=== PATIENT | female | born 1945 | race Two or more races ===

== ENCOUNTER 2024-10-12 23:01 | Inpatient (IN) | payer MEDICAID, SELFPAY ==
--- NOTE | 2024-10-12 23:16 | EKG_ITS ---
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
--- NOTE | 2024-10-12 23:16 | EDNOTE_ITS ---
ED Fall Injury RME/HPI General Chief Complaint: Fall Stated Complaint: FALL Time Seen by Provider: 10/12/24 23:10 Arrival date/time: 10/12/24 23:01 RME / HPI RME / HPI Narrative: Dr. Barton?s Main ED Evaluation: 79yo female with a history of HTN BIBA from home presents to the ED for a chief complaint of a fall. Patient states she was getting out of bed to use the restroom when she slipped and fell, landing on her left hip. Endorses having left hip pain. She denies any head strikes or loss of consciousness. Patient denies any headache, dizziness, neck pain, chest pain, abdominal pain, shortness of breath or any other associated symptoms. No known allergies. Related Data Home Medications ?Medication ?Instructions ?Recorded ?Confirmed atorvastatin 20 mg tablet 20 mg PO HS 12/22/21 2 Previous Rx's ?Medication ?Instructions ?Recorded hydrochlorothiazide 12.5 mg tablet 12.5 mg PO DAILY 30 days #30 tabs 06/02/20 lisinopril 40 mg tablet 40 mg PO QDAY 30 days #30 ta bs 06/02/20 ondansetron 4 mg disintegrating 4 mg PO Q4H PRN nausea and 12/22/21 tablet vomiting #10 tabs meclizine 25 mg tablet 25 mg PO BID PRN dizziness # 14 tabs 04/12/22 Allergies Allergy/AdvReac Type Severity Reaction Status Date / Time No Known Allergies Allergy Verified 04/12/22 13:32 Review of Systems Review of Systems Systems Reviewed: All systems reviewed, normal except as documented Narrative Review of Systems: Gen: No fever, no chills, no weight loss EYES: No discharge, no visual changes, no pain HEENT: No ear pain, no congestion, no sore throat PULM: No shortness of breath, no cough, no congestion CV: No chest pain, no dyspnea on exertion, no palpitations GI: No nausea, no vomiting, no diarrhea, no pain, no constipation : No frequency, no urgency, no dysuria Musc/skel: + LLE pain, no back pain Skin: No rash. Warm and dry. Psyc: No hallucinations, no depression Heme/Lymph: No easy bleeding or bruising tendencies Neuro: No weakness, no headache Past Medical History Past Medical History NEUROLOGIC: Negative Neurological Disorders or Seizures CARDIAC: Positive Hypertension and Varicose Veins; Negative Cardiac Disorders, Congestive Heart Failure, Edema or Cellulitis RESPIRATORY: Negative Chronic Obstructive Pulmonary Disease (COPD), Asthma, Tuberculosis, Pulmonary Embolism or Sleep Apnea GASTROINTESTINAL: Positive Gastrointestinal Disorders, Gall Bladder Disease and Hemorrhoids; Negative Hepatitis GENITOURINARY: Negative Genitourinary Disorders or Renal Disease REPRODUCTIVE: Positive Previous Pregnancies MUSCULOSKELETAL: Negative Musculoskeletal Disorders, Gout, Scoliosis, Fibromyalgia or Fractures ENDOCRINE: Negative Endocrine Disorders, Diabetes Mellitus Type 1 or Diabetes Mellitus Type 2 HEMATOLOGIC: Negative Blood Disorders or Sickle Cell Disease OTHER HISTORY: Negative Hospitalization, Autoimmune Disease, Shingles, Falls, Blood Transfusions, Anesthesia Reactions, Chemotherapy, Radiation Therapy, MRSA, Chicken Pox, Measles, Mumps or Cancer Family History FAMILY HISTORY: Negative Family Psychiatric Problems, Family Respiratory Disorders, Family Cardiac Disorders, Family Gastrointestinal Problems, Family Cancer, Family Surgery or Family Anesthesia Reaction Surgical History SURGICAL: Positive Hysterectomy; Negative Pacemaker Social History SMOKING STATUS: Never smoker SUBSTANCE USE: does not use ED Exam Narrative Physical exam: GENERAL APPEARANCE: alert and oriented x 4, well-developed, well-nourished, no acute distress VITALS: All vitals were reviewed and the pulse ox is % on room air, which is normal according to my interpretation. HEENT: Normocephalic, atraumatic; pupils equal, round, reactive to light; EOMI; mucous membranes pink, moist; oropharynx clear NECK: Supple LUNGS: CTABL; no wheezes, no rales, no rhonchi HEART: Regular rate, regular rhythm; normal S1, S2; no murmurs ABDOMEN: non distended; normal BS; soft, no tenderness, no guarding, no rebound; no masses, no organomegaly, no hernia BACK: no CVA tenderness EXTREMITIES: LLE is shortened, externally rotated, and tender on palpation; no edema NEUROLOGIC: awake; alert and oriented x4; cranial nerves II-XII grossly intact; no focal sensory or motor deficits PSYCHIATRIC: appropriate mood and affect SKIN: warm, dry, normal color; no rashes Course Course Course Narrative: CXR is ordered to r/o pneumothorax. Quality Measures none Orders Category Date Time Status Admit to Inpatient Status Routine Admission 10/13/24 01:05 Active Patient Condition Routine Admission 10/13/24 01:04 Ordered COVID-19 Screening Questionnaire NOW Care 10/13/24 00:31 Active Preliminary School Psychologist NOW Care 10/12/24 23:17 Active Continuous Pulse Oximetry NOW Care 10/12/24 23:16 Completed EKG (ED ONLY) *Do not use* NOW Care 10/12/24 23:17 Completed Notify provider NEEDED Care 10/13/24 01:04 Active Seizure precautions NEEDED Care 10/13/24 01:05 Active Consult to Cardiology Stat Cons 10/13/24 00:55 Ordered Diet Cardiac Diet 10/13/24 Breakfast Active CA echo doppler complete Stat Exams 10/13/24 00:55 Ordered EKG (ED Only) Stat Exams 10/12/24 23:16 Draft XR chest 1V Stat Exams 10/12/24 23:16 Completed XR hip LT w pelvis 2-3V Stat Exams 10/12/24 23:16 Completed Alcohol, Blood Medical Stat Lab 10/12/24 23:32 Completed CBC AM DRAW Lab 10/13/24 05:00 Ordered CBC AM DRAW Lab 10/14/24 05:00 Ordered CBC AM DRAW Lab 10/15/24 05:00 Ordered CBC Stat Lab 10/12/24 23:32 Completed Comprehensive Metabolic Panel AM DRAW Lab 10/13/24 05:00 Ordered Comprehensive Metabolic Panel AM DRAW Lab 10/14/24 05:00 Ordered Comprehensive Metabolic Panel AM DRAW Lab 10/15/24 05:00 Ordered Comprehensive Metabolic Panel Stat Lab 10/12/24 23:32 Completed Drug Screen,Urine Stat Lab 10/12/24 23:17 Ordered Lipase Stat Lab 10/12/24 23:32 Completed Lipid Panel AM DRAW Lab 10/13/24 05:00 Ordered Magnesium AM DRAW Lab 10/13/24 05:00 Ordered Magnesium AM DRAW Lab 10/14/24 05:00 Ordered Magnesium AM DRAW Lab 10/15/24 05:00 Ordered Magnesium Stat Lab 10/12/24 23:32 Completed Partial Thromboplastin Time Stat Lab 10/12/24 23:32 Completed Phosphorous AM DRAW Lab 10/14/24 05:00 Ordered Phosphorous AM DRAW Lab 10/15/24 05:00 Ordered Phosphorous AM DRAW Lab 10/16/24 05:00 Ordered Prothrombin Time with INR Stat Lab 10/12/24 23:32 Completed Thyroid Stimulating Hormone AM DRAW Lab 10/13/24 05:00 Ordered Troponin I Stat Lab 10/12/24 23:32 Completed Urinalysis Stat Lab 10/12/24 23:17 Ordered Acetaminophen Tab [Tylenol Tab] Med 10/13/24 01:04 Active 650 mg PO Q6H PRN Albuterol/Ipratr Rt Sima [Duoneb Rt Sima] Med 10/13/24 01:04 Active 3 ml INH Q4HR PRN HYDROmorphone INJ [Dilaudid Inj] Med 10/13/24 01:04 Active 1 mg IVP Q4HR PRN Ketorolac Inj [Toradol Inj] Med 10/13/24 00:37 Discontinued 15 mg IVP X1 ONE Lactulose Syrup [Enulose Syrup] Med 10/13/24 09:00 Active 10 gm PO QDAY Lidocaine 5% Patch Med 10/13/24 00:37 Discontinued 1 patch TOP X1 ONE Morphine Inj Med 10/13/24 01:04 Active 4 mg IVP Q4HR PRN Ondansetron Inj [Zofran Inj] Med 10/13/24 01:04 Active 4 mg IV Q6H PRN Pantoprazole Inj [Protonix Inj] Med 10/13/24 09:00 Active 40 mg IVP QDAY Senna [Senokot] Med 10/13/24 09:00 Active 1 tab PO QDAY fentaNYL INJ [Sublimaze Inj] Med 10/12/24 23:16 Discontinued 50 mcg IVP X1 ONE Code Status Routine Oth 10/13/24 01:04 Ordered Late Tray Request Routine Oth 10/13/24 00:55 Active Oxygen Delivery PRN RT 10/13/24 01:04 Active Vital Signs Vital signs: Vital Signs Pulse Rate 68 10/12/24 23:17 Fall [facility] Narrative [facility] Narrative:: Scribe Attestation: 10/12/24 Paige Paz am scribing for and in the presence of Dr. Barton. Patient data External records reviewed:: [facility] previous records (Per chart review, patient has no relevant previous ED visits.) Clinical information provided by:: patient Social determinants that could affect healthcare access:: none Patient has the following chronic illnesses:: HTN How is presenting disease/condition affected by chronic disease/condition?: uneffected by Evaluation data The following diagnostics were reviewed and interpreted by me:: lab results, radiology exam(s) and EKG tracing(s) Lab and/or radiology exams considered but not ordered:: none Interpretation Summary: WBC count is elevated at 12.3, PTT is normal, PT and INR are normal, troponin is normal, CMP is normal, Blood Alcohol is negative, according to my interpretation. EKG done at 2335, NSR, rate of 61, normal axis, no ectopy, no acute ischemia, according to my interpretation. ----- [facility] Report Signed Patient: LANNY MOORE. Record#: [id number] Birthdate: 1945 Age/Sex: 79 / F Location: [facility] Attending Dr: Ordering Physician: Marcos Barton MD Date of Service: 10/12/24 Procedure(s): XR hip LT w pelvis 2-3V Accession Number(s): [id number] cc: Des Vee MD; Marcos Barton MD~ Examination:Left hip AP, lateral, AP pelvis 3 views Technique: Hip AP lateral, AP pelvis, 3 views Exam date and time:October 12, 2024 11:21 PM INDICATIONS: Patient fell today with injury of the acromion hip pain. FINDINGS: Acute intertrochanteric fracture left hip, up to 13 mm separation of the main fracture fragments No dislocation Right hip bones of the pelvis is intact IMPRESSION: Acute intertrochanteric fracture left hip. Dictated By: Des Vee MD Signed By: <Electronically signed by Des Vee MD in OV> 10/12/24 2355 [facility] Report Signed Patient: LANNY MOORE. Record#: [id number] Birthdate: 1945 Age/Sex: 79 / F Location: [facility] Attending Dr: Ordering Physician: Marcos Barton MD Date of Service: 10/12/24 Procedure(s): XR chest 1V Accession Number(s): [id number] cc: Des Vee MD; Marcos Barton MD~ Examination: AP chest single view TECHNIQUE: AP portable supine chest single view Exam date and time: October 12, 2019 5:30 PM INDICATIONS: Patient fell today with injury to the hip, hip pain, hip fracture today pre-op chest x-ray FINDINGS: Normal heart size No pneumonia or pulmonary edema Prominent osteopenia IMPRESSION: No active disease Dictated By: Des Vee MD Signed By: <Electronically signed by Des Vee MD in OV> 10/12/24 1683 Medications / Prescriptions Medications or Prescriptions considered but not ordered:: none Medication administrations:: Medication Administration History Acetaminophen (Acetaminophen 325 Mg Tablet) 650 mg PO Q6H PRN PRN Reason: Fever >100.3 or pain Stop: 11/12/24 01:03 Albuterol/Ipratropium (Albuterol/Ipratropium (Duoneb) Rt Sima 3 Ml Nebu) 3 ml INH Q4HR PRN PRN Reason: SHORTNESS OF BREATH OR WHEEZE Stop: 11/12/24 01:03 Hydralazine HCl (Hydralazine Inj 20 Mg/Ml Vial) 5 mg IV Q6HR PRN PRN Reason: SBP > 180 Stop: 11/12/24 01:10 Hydromorphone HCl (Hydromorphone Inj 2 Mg/Ml Vial) 1 mg IVP Q4HR PRN PRN Reason: BREAKTHROUGH PAIN Stop: 10/18/24 01:03 Lactulose (Lactulose Syrup 20 Gm/30 Ml Udc) 10 gm PO QDAY [facility]; Protocol Stop: 11/12/24 08:59 Morphine Sulfate (Morphine Sulf Inj 10 Mg/Ml Vial) 4 mg IVP Q4HR PRN PRN Reason: PAIN SCALE 4-10(Mod-Sev Stop: 10/18/24 01:03 Ondansetron HCl (Ondansetron Inj 2 Mg/Ml Inj 2 Ml) 4 mg IV Q6H PRN; Protocol PRN Reason: NAUSEA OR VOMITING Stop: 11/12/24 01:03 Pantoprazole Sodium (Pantoprazole Inj 40 Mg Vial) 40 mg IVP QDAY RAMA Stop: 11/12/24 08:59 Sennosides (Senna Tablet) 1 tab PO QDAY [facility]; Protocol Stop: 11/12/24 08:59 Discontinued Medications Fentanyl Citrate (Fentanyl Cit Inj 50 Mcg/Ml Amp 2ml) 50 mcg IVP X1 ONE Stop: 10/12/24 23:17 Last Admin: 10/12/24 23:38 Dose: 50 mcg Documented By: SALUD Ketorolac Tromethamine (Ketorolac Inj 30 Mg/Ml Vial) 15 mg IVP X1 ONE Stop: 10/13/24 00:38 Last Admin: 10/13/24 01:01 Dose: 15 mg Documented By: SALUD Lidocaine (Lidocaine 5% 1 Patch) 1 patch TOP X1 ONE Stop: 10/13/24 00:38 Last Admin: 10/13/24 01:01 Dose: 1 patch Documented By: SALUD see above Consultations Consultation(s) initiated? (list below): Yes Consultation #1 (Physician, Specialty, Details): Discussed case with [Dr. Sharp] from [orthopedic surgery] regarding [consultation]. Discussed patients ED course, exam findings, labs, and radiology results. Agrees to consult. Time: 00:19 Consultation #2 (Physician, Specialty, Details): Discussed case with [the resident physician, attending Dr. Prescott] from Hospitalist service regarding admission. Discussed patients ED course, exam f indings, labs, and radiology results. The Hospitalist [agrees] to accept the patient for admission. Time: 00:21 Diagnosis Fall Differential Diagnosis: other (fracture, dislocation, contusion) Most likely diagnosis given after review of the tests above:: see below Admission Indicated Admission indicated?: indicated Admission Request Was there a request for admission?: Yes Admission Attestation Admission request attestation: Discussed case with [] from Hospitalist service regarding admission. Discussed patients ED course, exam findings, labs, and radiology results. The Hospitalist [agrees,declines] to accept the patient for admission. Disposition Plan Disposition Plan: Admit Discharge Plan Problem List Clinical Impression: Closed hip fracture
[2024-10-12 23:17] VITALS: PULSE 68
[2024-10-12 23:28] VITALS: BP 179/77; PULSE 67; RESP 18; TEMP 36.6; O2SAT 99
[2024-10-12] MEDS: fentaNYL CIT INJ 50 mCg/ML AMP 2ML IVP (23:38)
[2024-10-12 23:58] LABS: Basophils % (Auto) 0 % (0-2.5); Eosinophils # (Auto) 0.1 Thou/mm3 (0.0-0.5); Eosinophils % (Auto) 0 % (0-10); Hematocrit 34.5 % (36.0-46.0); Immature Granulocytes % (Auto) 0 % (0-0); Immature Granulocytes Auto 0.04 Thou/mm3 (0.00-0.00); Lymphocytes # (Auto) 1.2 Thou/mm3 (1.0-4.8); Lymphocytes % (Auto) 10 % (10-50); Mean Corpuscular HGB Conc 34.8 g/dl (31.0-37.0); Mean Corpuscular Hemoglobin 28.8 pg (25.0-35.0); Mean Corpuscular Volume 83 fL (80-100); Monocytes # (Auto) 0.8 Thou/mm3 (0.0-0.8); Monocytes % (Auto) 7 % (0-12); Neutrophils # (Auto) 10.1 Thou/mm3 (1.8-7.7); Neutrophils % (Auto) 83 % (37-80); Nucleated Red Blood Cell % 0 /100 WBC (0); Partial Thromboplastin Time 25.6 Seconds (22.0-36.0); Platelet Count 227 Thou/mm3 (140-440); RDW Standard Deviation 41.2 fL (36.4-46.3); Red Blood Count 4.17 Miln/mm3 (4.00-5.20); White Blood Count 12.3 Thou/mm3 (3.6-11.0)
[2024-10-13] VITALS (13 sets, daily range): BP systolic 110–153; BP diastolic 48–96; PULSE 60–81; RESP 14–98; TEMP 36.7–37.7; O2SAT 94–98; BMI 25.4
[2024-10-13 00:02] LABS: Troponin I < 0.020 ng/mL (0.0-0.045)
[2024-10-13 00:11] LABS: Albumin, Serum 4.2 gm/dL (3.4-4.8); Albumin/Globulin Ratio 1.7 (1.2-2.2); Alcohol, Blood Medical < 3.0 mg/dL (0-10.0); Alkaline Phosphatase 70 U/L (46-116); Anion Gap 9 (7-16); Aspartate Amino Transferase 19 U/L (0-34); BUN/Creatinine Ratio 21 Ratio (12-20); Bilirubin,Total 0.5 mg/dL (0.3-1.2); Blood Urea Nitrogen 17 mg/dL (9-23); Calcium 9.5 mg/dL (8.3-10.6); Calcium (Corrected) 9.5 mg/dL (8.5-10.1); Carbon Dioxide 26.5 mMol/L (20.0-31.0); Chloride 103 mMol/L (98-107); Creatinine (Component) 0.8 mg/dL (0.6-1.3); Globulin 2.5 gm/dL (2.3-3.5); Glucose 153 mg/dL (74-106); Lipase 33 U/L (12-53); Magnesium 1.7 mg/dL (1.6-2.6); Osmolality,Calculated 280 (275-295); Potassium 3.5 mMol/L (3.4-5.1); Sodium 138 mMol/L (136-145); Total Protein 6.7 gm/dL (5.7-8.2); eGFR > 60 See Note
[2024-10-13 00:14] LABS: Alanine Aminotransferase 12 U/L (10-49)
--- NOTE | 2024-10-13 00:55 | ECHO_ITS ---
Transthoracic Echo Report Ht (in): 60 Wt (lb): 130 Exam Location: Echo Lab Status: Emergency Hvac/R Service Technician: Ladi Marquez Indications: Procedure Performed: BP: 179 / 77 HR: 68 Technical Quality: Technically difficult study MEASUREMENTS (Male / Female) Normal Values 2D ECHO LA Volume Index 25.4 cm?/m? 16 - 28 cm?/m? DOPPLER AV Peak Velocity 148.0 cm/s AV Peak Gradient 8.8 mmHg AV Mean Gradient 5.0 mmHg AV Velocity Time Integral 29.5 cm AI Peak Velocity 240.0 cm/s AI Peak Gradient 23.0 mmHg AI Pressure Half Time 686.0 ms LVOT Peak Velocity 134.0 cm/s LVOT Peak Gradient 7.2 mmHg LVOT Velocity Time Integral 28.1 cm MV Area PHT 4.2 cm? MR Peak Velocity 314.0 cm/s MR Peak Gradient 39.4 mmHg Mitral E Point Velocity 40.3 cm/s Mitral A Point Velocity 62.1 cm/s Mitral E to A Ratio 0.6 LV E' Lateral Velocity 9.1 cm/s Mitral E to LV E' Lateral Ratio 4.4 LV E' Septal Velocity 5.0 cm/s Mitral E to LV E' Septal Ratio 8.1 TR Peak Velocity 217.0 cm/s TR Peak Gradient 18.8 mmHg PV Peak Velocity 107.0 cm/s PV Peak Gradient 4.6 mmHg FINDINGS Left Ventricle Normal left ventricular size, wall thickness, systolic function with no obvious regional wall motion abnormalities. Normal left ventricular diastolic filling pattern for age. The ejection fraction is visually estimated at 65 %. Right Ventricle The right ventricle is normal in size and systolic function. Left Atrium The left atrium is normal by two-dimensional, color flow and Doppler imaging with no structural abnormalities, no thrombus formation present. Right Atrium The right atrium is normal by two-dimensional imaging, color flow and Doppler imaging with no structural abnormalities, no thrombus formation present. Atrial Septum The interatrial septum appears normal with no evidence of a shunt. Aorta The aorta is normal by two-dimensional, color flow and Doppler interrogation. Mitral Valve The mitral valve is normal by two-dimensional, color flow and Doppler interrogation. There is mild mitral valve regurgitation, stenosis or prolapse. Aortic Valve The aortic valve is trileaflet and normal by two-dimensional, color flow and Doppler interrogation. There is mild aortic valve regurgitation. Tricuspid Valve The tricuspid valve is normal by two-dimensional, color flow and Doppler interrogation. There is mild tricuspid valve regurgitation. Pulmonic Valve The pulmonic valve is not well visualized. There is no significant pulmonic valve regurgitation. Vessels Inferior vena cava not well visualized. Pericardium The pericardium is normal by two-dimensional imaging. There is no significant pericardial effusion. CONCLUSIONS Indication: Pre-op Normal LV size, wall thickness. Estimated EF 65 %. RV is normal in size and systolic function. Mild MR, TR and AI. Mere Cheung (Electronically Signed) Final Date: 15 October 2024 00:21
[2024-10-13] MEDS: LIDOCAINE 5% 1 PATCH TOP (01:01)
[2024-10-13] MEDS: KETOROLAC INJ 30 MG/ML VIAL 15 MG IVP (01:01)
--- NOTE | 2024-10-13 01:13 | ESHP_ITS ---
<Statement entered by Obey Prescott MD - 10/13/24 13:31> I have discussed and was present for the essential components of the history, physical examination, diagnosis, and treatment plan with the resident. I agree with the patient's care as documented by the resident and amended herein by me. Obey Prescott MD FACP. Documentation for date of: 10/13/24 HPI History of Present Illness Chief complaint: Ground Level fall History of present illness: HPI: Patient is [place]-speaking and interview conducted with a registered healthcare camouflage specialist. Patient was seen with daughter at bedside. Patient is a 79-year-old past medical history significant for essential hypertension, hyperlipidemia and osteoporosis presented today with a chief complaint of a ground-level fall. Patient was lying in bed last night and attempted to reach for the remote on bedside table. Subsequently patient rolled off of the bed and fell on the floor. Denied any dizziness, headache, presyncope/syncope, chest pain, shortness of breath, PND/orthopnea, vomiting, diarrhea, fever, sick contacts and recent travel. Subsequently patient experienced 10/10 pain in her left hip, constant, no radiation and aggravated by movement. Her daughter called the ambulance and she was brought into the ED. ED course: BP 179/77, pulse 67, RR 18, temp 98F, SpO2 99% on room air. Lab significant for Hb 12, HCT 34.5, NA 138, K3.5, BUN 17, CR 0.8. EKG significant for sinus rhythm, rate 61, QTc 428. No acute ST changes. Chest x-ray negative for any consolidation, pulmonary edema and pleural effusion. Hip/pelvis x-ray significant for acute intertrochanteric fracture left hip with 13 mm separation of the main fracture fragments. In the ED patient received fentanyl 50 mcg IV x 1. Patient will be admitted for treatment and management of left hip fracture. Orthopedics, Dr Sharp consulted and closely following the case. Appreciate recommendations. Cardiology, Dr. Velásquez consulted for cardiac clearance. Appreciate recommendations. Review of Systems Review of Systems Narrative Review of Systems: GENERAL: Denies fever/chills or diaphoresis. HEENT: Denies headaches or visual changes. Denies discharge. Neuro: Denies unusual weakness or difficulty speaking. CARDIO: Denies chest pain or palpitations. PULM: Denies SOB, coughing or wheezing. GI: Denies abdominal pain, N/V/C/D. Reports having BMs. URO: Denies burning/itching/pain/urinary changes. MSK/EXT/SKIN: As above PSYCH: Cooperative, pleasant mood & affect. The rest of the review of systems is otherwise negative. Past Medical History Past Medical History Comments PMH COMMENT: Past medical history: ? Essential hypertension ? Hyperlipidemia ? Osteoporosis Medication list: ?Awaiting reconciliation Past surgical history: ? Cholecystectomy ? Vaginal hysterectomy with rectocele repair [2020] Allergies: NIL Social history: Occupational History: Retired. Previously field engineer Education Level: Never attended school Marital Status: with 13 kids Tobacco use: Denies ETHO use: Denies Illicit drug use: Denies Social History Note: lives with daughters. At baseline ambulates without any aides. Family History: Denies Exam Vital Signs Temp Pulse Resp BP Pulse Ox O2 Del Method 98 F 67 18 179/77 H 99 Room Air 10/12/24 23:28 10/12/24 23:28 10/12/24 23:28 10/12/24 23:28 10/12/24 23:28 10/12/24 23:28 Narrative Exam Constitutional Alert, oriented x 3 and mild distress. Elderly female HEENT Vision grossly intact. Patent nares. Trachea midline Respiratory Chest normal on inspection and clear auscultation bilaterally Cardiovascular S1 and S2 audible, RRR. No murmurs carotid bruit. JVD not assessed Abdominal Soft and non tender to palpation in all quadrants. BS + Genitourinary No bladder tenderness, no flank pain. Normal to palpation Musculoskeletal Extremities tone within normal limits. No LE edema. Left leg shortened and externally rotated Neurological CN II - XII grossly intact. Extremity motor and sensation grossly intact. Skin Warm, dry and intact. Varicose veins on bilateral lower extremities up to knees Psychiatric Patient has good affect, is cooperative Results: Labs 10/12/24 23:32 10/12/24 23:32 Labs: Short CBC 10/12/24 Range/Units 23:32 WBC 12.3 H (3.6-11.0) Thou/mm3 Hgb 12.0 (12.0-16.0) g/dL Hct 34.5 L (36.0-46.0) % Plt Count 227 (140-440) Thou/mm3 BMP 10/12/24 23:32 Sodium 138 Potassium 3.5 Chloride 103 Carbon Dioxide 26.5 BUN 17 Creatinine 0.8 Glucose 153 H Calcium 9.5 Cardiac Enzymes 10/12/24 Range/Units 23:32 Troponin I < 0.020 (0.0-0.045) ng/mL Liver Function 10/12/24 Range/Units 23:32 Total Bilirubin 0.5 (0.3-1.2) mg/dL AST 19 (0-34) U/L ALT 12 (10-49) U/L Alkaline Phosphatase 70 (46-116) U/L Albumin 4.2 (3.4-4.8) gm/dL Quality Measures Quality Measures none Advance care planning discussed with:: patient and child Medications Home Medications and Allergies Home Medications ?Medication ?Instructions ?Recorded ?Confirmed ?Type atorvastatin 20 mg tablet 20 mg PO HS 12/22/21 2 History Allergies Allergy/AdvReac Type Severity Reaction Status Date / Time No Known Allergies Allergy Verified 04/12/22 13:32 Visit Medications Acetaminophen (Acetaminophen 325 Mg Tablet) 650 mg PO Q6H PRN PRN Reason: Fever >100.3 or pain Stop: 11/12/24 01:03 Albuterol/Ipratropium (Albuterol/Ipratropium (Duoneb) Rt Sima 3 Ml Nebu) 3 ml INH Q4HR PRN PRN Reason: SHORTNESS OF BREATH OR WHEEZE Stop: 11/12/24 01:03 Hydralazine HCl (Hydralazine Inj 20 Mg/Ml Vial) 5 mg IV Q6HR PRN PRN Reason: SBP > 180 Stop: 11/12/24 01:10 Hydromorphone HCl (Hydromorphone Inj 2 Mg/Ml Vial) 1 mg IVP Q4HR PRN PRN Reason: BREAKTHROUGH PAIN Stop: 10/18/24 01:03 Lactulose (Lactulose Syrup 20 Gm/30 Ml Udc) 10 gm PO QDAY RAMA; Protocol Stop: 11/12/24 08:59 Morphine Sulfate (Morphine Sulf Inj 10 Mg/Ml Vial) 4 mg IVP Q4HR PRN PRN Reason: PAIN SCALE 4-10(Mod-Sev Stop: 10/18/24 01:03 Ondansetron HCl (Ondansetron Inj 2 Mg/Ml Inj 2 Ml) 4 mg IV Q6H PRN; Protocol PRN Reason: NAUSEA OR VOMITING Stop: 11/12/24 01:03 Pantoprazole Sodium (Pantoprazole Inj 40 Mg Vial) 40 mg IVP QDAY RAMA Stop: 11/12/24 08:59 Sennosides (Senna Tablet) 1 tab PO QDAY RAMA; Protocol Stop: 11/12/24 08:59 Discontinued Medications Fentanyl Citrate (Fentanyl Cit Inj 50 Mcg/Ml Amp 2ml) 50 mcg IVP X1 ONE Stop: 10/12/24 23:17 Last Admin: 10/12/24 23:38 Dose: 50 mcg Ketorolac Tromethamine (Ketorolac Inj 30 Mg/Ml Vial) 15 mg IVP X1 ONE Stop: 10/13/24 00:38 Last Admin: 10/13/24 01:01 Dose: 15 mg Lidocaine (Lidocaine 5% 1 Patch) 1 patch TOP X1 ONE Stop: 10/13/24 00:38 Last Admin: 10/13/24 01:01 Dose: 1 patch Assessment & Plan Plan Patient is a 79-year-old past medical history significant for essential hypertension, hyperlipidemia and osteoporosis presented today with a chief complaint of a ground-level fall. Patient will be admitted for treatment and management of left hip fracture. 1. Acute intertrochanteric fracture left hip secondary to ground-level fall 2. Osteoporosis Patient fell out of bed onto the floor after reaching for the remote on bedside table. On exam patient's left leg shortened and externally rotated Hip/pelvis x-ray significant for acute intertrochanteric fracture left hip with 13 mm separation of the main fracture fragments. In the ED patient received fentanyl 50 mcg IV x 1 Plan: ? Cardiac diet ? Transthoracic echocardiogram ordered to assess for wall motion abnormalities, valvular defects and ejection fraction. ? Lidocaine patch x 1 ? Ketorolac 15 Mg IV x 1 ? Morphine 4 Mg IV Q4 hourly as needed for pain 4?10 ? Hydromorphone 1 Mg IV Q4 hourly as needed for breakthrough pain ? Cardiology, Dr. Velásquez consulted for cardiac clearance. Appreciate recommendations ? Orthopedics, Dr Sharp consulted and is closely following the case. 3. Essential hypertension 4. Hyperlipidemia On admission BP 179/77. Hypertension most likely secondary to pain Plan: ? Medication reconciliation ? Lipid panel ordered ? Hydralazine 5 Mg IV every 6 hourly as needed for SBP >180 5. Varicose veins On exam patient has bilateral lower extremity varicose veins up to her knees Plan: ? On discharge will recommend compression stockings Health maintenance: Disposition: Pain control. Pending cardiac clearance and Ortho recommendations Diet: Cardiac Lines: pIVs GI Prophylaxis: Pantoprazole Thrombo Prophylaxis: None Code status: FULL CODE Plan of care discussed with Attending Dr. Kenyon Pitts MD PGY 1
[2024-10-13 05:46] LABS: Basophils % (Auto) 0 % (0-2.5); Eosinophils % (Auto) 0 % (0-10); Hematocrit 35.2 % (36.0-46.0); Immature Granulocytes % (Auto) 0 % (0-0); Immature Granulocytes Auto 0.03 Thou/mm3 (0.00-0.00); Lymphocytes # (Auto) 0.8 Thou/mm3 (1.0-4.8); Lymphocytes % (Auto) 8 % (10-50); Mean Corpuscular HGB Conc 34.1 g/dl (31.0-37.0); Mean Corpuscular Hemoglobin 28.5 pg (25.0-35.0); Mean Corpuscular Volume 84 fL (80-100); Monocytes # (Auto) 0.6 Thou/mm3 (0.0-0.8); Monocytes % (Auto) 6 % (0-12); Neutrophils # (Auto) 8.6 Thou/mm3 (1.8-7.7); Neutrophils % (Auto) 85 % (37-80); Nucleated Red Blood Cell % 0 /100 WBC (0); Platelet Count 231 Thou/mm3 (140-440); RDW Standard Deviation 42.1 fL (36.4-46.3); Red Blood Count 4.21 Miln/mm3 (4.00-5.20); White Blood Count 10.1 Thou/mm3 (3.6-11.0)
[2024-10-13 06:24] LABS: Alanine Aminotransferase 12 U/L (10-49); Albumin, Serum 4.3 gm/dL (3.4-4.8); Albumin/Globulin Ratio 1.7 (1.2-2.2); Alkaline Phosphatase 69 U/L (46-116); Anion Gap 11 (7-16); Aspartate Amino Transferase 19 U/L (0-34); BUN/Creatinine Ratio 23 Ratio (12-20); Bilirubin,Total 0.6 mg/dL (0.3-1.2); Blood Urea Nitrogen 18 mg/dL (9-23); Calcium 9.6 mg/dL (8.3-10.6); Calcium (Corrected) 9.6 mg/dL (8.5-10.1); Cardiac Risk Estimate 3.8 RATIO (3.7-5.6); Chloride 102 mMol/L (98-107); Cholesterol 181 mg/dL (132-200); Creatinine (Component) 0.8 mg/dL (0.6-1.3); Globulin 2.5 gm/dL (2.3-3.5); Glucose 147 mg/dL (74-106); HDL Cholesterol 48 mg/dL (40-60); LDL Cholesterol,Calculated 117 mg/dL (0-130); Magnesium 1.7 mg/dL (1.6-2.6); Osmolality,Calculated 280 (275-295); Potassium 4.2 mMol/L (3.4-5.1); Sodium 138 mMol/L (136-145); Thyroid Stimulating Hormone 0.32 uIU/mL (0.55-4.78); Total Protein 6.8 gm/dL (5.7-8.2); Triglycerides 82 mg/dL (30-150); eGFR > 60 See Note
--- NOTE | 2024-10-13 07:16 | PC.NURSE ---
Pt. here from home to room 6, pt.'s daughter at bedside, pt. states she fell and has pain to left hip. Warm blankets given and coffee given to daughter.
--- NOTE | 2024-10-13 08:20 | PD.IMCONS ---
HPI Data of Consult Requesting Physician: Obey Prescott MD Primary Care Provider: Tanvir Donnelly PA-C Consult Narrative History of present illness: This is [id number] past medical history significant for essential hypertension, hyperlipidemia and osteoporosis Patient was seen in the emergency room following a fall from the bed Patient was evaluated emergency room and found to have a hip fracture Cardiology consultation requested for cardiac clearance Patient appears to have a right hip fracture No chest pain neck pain left arm pain shortness of breath noted EKG does not show any acute ST-T wave changes Troponins are essentially negative cc:: cc: Obey Prescott MD Meds Home Medications and Allergies Home Medications ?Medication ?Instructions ?Recorded ?Confirmed ?Type atorvastatin 20 mg tablet 20 mg PO HS 12/22/21 12/22/21 History Allergies Allergy/AdvReac Type Severity Reaction Status Date / Time No Known Allergies Allergy Verified 04/12/22 13:32 Exam Vital Signs Temp Pulse Resp BP Pulse Ox O2 Del Method 98.4 F 68 21 H 110/48 L 97 Room Air 10/13/24 05:48 10/13/24 05:48 10/13/24 05:48 10/13/24 05:48 10/13/24 05:48 10/13/24 05:48 Routine HEENT Exam Head: Present normocephalic and atraumatic Eye: Present EOMI and PERRL ENT: Present mucous membranes moist Routine Neck Exam Neck: Present supple and trachea midline Routine Respiratory Exam Respiratory: Present chest non-tender, lungs clear, normal breath sounds and no resp distress Routine Cardiovascular Exam Cardiovascular: Present RRR Routine Abdominal Exam Abdominal: Present soft and normoactive bowel sounds Routine Extremities Exam Extremities: Present full ROM Routine Skin Exam Skin: Present intact, dry and warm Routine Neurological Exam Neurological: Present alert, oriented X3 and CN II-XII intact Routine Psychiatric Exam Psychiatric: Present normal affect and normal thought process Results Labs 10/13/24 05:05 10/13/24 05:05 Labs: Short CBC 10/12/24 10/13/24 Range/Units 23:32 05:05 WBC 12.3 H 10.1 (3.6-11.0) Thou/mm3 Hgb 12.0 12.0 (12.0-16.0) g/dL Hct 34.5 L 35.2 L (36.0-46.0) % Plt Count 227 231 (140-440) Thou/mm3 BMP 10/12/24 10/13/24 23:32 05:05 Sodium 138 138 Potassium 3.5 4.2 D Chloride 103 102 Carbon Dioxide 26.5 25.0 BUN 17 18 Creatinine 0.8 0.8 Glucose 153 H 147 H Calcium 9.5 9.6 Cardiac Enzymes 10/12/24 Range/Units 23:32 Troponin I < 0.020 (0.0-0.045) ng/mL Liver Function 10/12/24 10/13/24 Range/Units 23:32 05:05 Total Bilirubin 0.5 0.6 (0.3-1.2) mg/dL AST 19 19 (0-34) U/L ALT 12 12 (10-49) U/L Alkaline Phosphatase 70 69 (46-116) U/L Albumin 4.2 4.3 (3.4-4.8) gm/dL Assessment and Plan Assessment and plan (1) Closed hip fracture: Status: Acute (2) Hypertension: Status: Acute (3) Hyperlipidemia: Status: Acute (4) Preop cardiovascular exam: Status: Acute Additional Assessment & Plan Additional Plan: Patient appears to have fracture of hip Currently denies any cardiac symptoms EKG: Probable Troponins are negative Echocardiographic examination was pending Patient is considered to be in optimal cardiac condition for the planned surgical procedure
[2024-10-13] MEDS: MORPHINE SULF INJ 10 MG/ML VIAL 4 MG IVP ×2 (10:18→19:08)
[2024-10-13] MEDS: PANTOPRAZOLE INJ 40 MG VIAL IVP (10:22)
[2024-10-13] MEDS: LACTULOSE SYRUP 20 GM/30 ML UDC 10 GM PO (10:23)
[2024-10-13] MEDS: SENNA TABLET 1 TAB PO (10:23)
--- NOTE | 2024-10-13 10:30 | PC.NURSE ---
Warm blankets given and pt. has 2 daughters bedside. Pt. states she's comfortable.
--- NOTE | 2024-10-13 18:52 | PD.RESPRO ---
Documentation for date of: 10/13/24 Senior resident attestation: The patient is a 79-year-old female medical history pertinent for hypertension, hyperlipidemia and osteoporosis admitted with left hip fracture following ground-level mechanical fall. Orthopedic surgeon Dr. Sharp was consulted, patient will require cardiac clearance prior to procedure, echocardiogram ordered and cardiology was consulted. Patient evaluated and examined at the bedside, plan of care discussed with rest of the team including my attending physician, except as noted. Frieda PGY2 Subjective Subjective Interval history: 10/13: Patient is an overnight admit. Patient seen this morning patient's daughter is at bedside who stated patient fell off her bed and broke her left hip. Patient underwent cardiac clearance this morning and patient is scheduled for left hip surgery tomorrow. Patient denies any chest pain, abdominal pain or dysuria. Patient states she has mild pain in the hip. Exam Vital Signs Temp Pulse Resp BP Pulse Ox O2 Del Method 98.1 F 79 18 144/96 H 96 Room Air 10/13/24 16:00 10/13/24 16:00 10/13/24 16:00 10/13/24 16:00 10/13/24 16:00 10/13/24 16:00 Narrative Exam GENERAL: A&Ox3 . Awake, Not in acute distress NEURO: no focal neurological deficits HEENT: Atraumatic, Normocephalic. mucous membranes moist. Eyes open, symmetrical, & clear HEART: Normal Heart Sounds LUNGS: Clear to auscultation with no wheezing or crackles. ABDOMEN: soft, non-distended, non-tender, bowel sounds heard, no guarding or rebound tenderness SKIN: No Rash or ecchymoses EXTREMITIES: No edema, tenderness, able to move all 4 extremities, pedal pulses palpated, Varicose veins on bilateral lower extremities up to knees Objective Labs 10/14/24 04:38 10/14/24 04:38 Labs: Laboratory Results - last 24 hr 10/12/24 10/13/24 10/13/24 23:32 05:05 12:05 WBC 12.3 H 10.1 RBC 4.17 4.21 Hgb 12.0 12.0 Hct 34.5 L 35.2 L MCV 83 84 MCH 28.8 28.5 MCHC 34.8 34.1 RDW Std Deviation 41.2 42.1 Plt Count 227 231 Neut % (Auto) 83 H 85 H Lymph % (Auto) 10 8 L [place] % (Auto) 7 6 Eos % (Auto) 0 0 Baso % (Auto) 0 0 Neut # (Auto) 10.1 H 8.6 H Lymph # (Auto) 1.2 0.8 L [place] # (Auto) 0.8 0.6 Eos # (Auto) 0.1 0.0 Baso # (Auto) 0.0 0.0 Immature Gran # (Auto) 0.04 H 0.03 H Absolute Nucleated RBC 0.00 0.00 Immature Gran % 0 0 Nucleated RBC % 0 0 PT 11.0 INR 1.0 APTT 25.6 Sodium 138 138 Potassium 3.5 4.2 D Chloride 103 102 Carbon Dioxide 26.5 25.0 Anion Gap 9 11 BUN 17 18 Creatinine 0.8 0.8 Estim Creat Clear Calc Not Performed. Not Performed. eGFR > 60 > 60 BUN/Creatinine Ratio 21 H 23 H Glucose 153 H 147 H Calculated Osmolality 280 280 Calcium 9.5 9.6 Corrected Calcium 9.5 9.6 Magnesium 1.7 1.7 Total Bilirubin 0.5 0.6 AST 19 19 ALT 12 12 Alkaline Phosphatase 70 69 Troponin I < 0.020 Total Protein 6.7 6.8 Albumin 4.2 4.3 Globulin 2.5 2.5 Albumin/Globulin Ratio 1.7 1.7 Triglycerides 82 Cholesterol 181 LDL Cholesterol, Calc 117 HDL Cholesterol 48 Cholesterol/HDL Ratio 3.8 Lipase 33 TSH 0.32 L Ethyl Alcohol < 3.0 Blood Type A Positive Antibody Screen NEGATIVE Crossmatch See Detail Blood Bank Wristband ID Yes Quality Measures Quality Measures none Advance care planning discussed with:: patient Assessment & Plan Assessment Current Active Medications: Generic Name Dose Route Start Last Admin Trade Name Freq PRN Reason Stop Dose Admin Acetaminophen 650 mg 10/13/24 01:04 Acetaminophen 325 Mg Tablet PO 11/12/24 01:03 Q6H PRN Fever >100.3 or pain Protocol Albuterol/Ipratropium 3 ml 10/13/24 01:04 Albuterol/Ipratropium (Duoneb) Rt Sima 3 Ml Nebu INH 11/12/24 01:03 Q4HR PRN SHORTNESS OF BREATH OR WHEEZE Hydralazine HCl 5 mg 10/13/24 01:11 Hydralazine Inj 20 Mg/Ml Vial IV 11/12/24 01:10 Q6HR PRN SBP > 180 Hydromorphone HCl 1 mg 10/13/24 01:04 Hydromorphone Inj 2 Mg/Ml Vial IVP 10/18/24 01:03 Q4HR PRN BREAKTHROUGH PAIN Lactulose 10 gm 10/13/24 09:00 10/13/24 10:23 Lactulose Syrup 20 Gm/30 Ml Udc PO 11/12/24 08:59 10 gm QDAY RAMA Administration Protocol Morphine Sulfate 4 mg 10/13/24 01:04 10/13/24 10:18 Morphine Sulf Inj 10 Mg/Ml Vial IVP 10/18/24 01:03 4 mg Q4HR PRN Administration PAIN SCALE 4-10(Mod-Sev Ondansetron HCl 4 mg 10/13/24 01:04 Ondansetron Inj 2 Mg/Ml Inj 2 Ml IV 11/12/24 01:03 Q6H PRN NAUSEA OR VOMITING Protocol Pantoprazole Sodium 40 mg 10/13/24 09:00 10/13/24 10:22 Pantoprazole Inj 40 Mg Vial IVP 11/12/24 08:59 40 mg QDAY RAMA Administration Sennosides 1 tab 10/13/24 09:00 10/13/24 10:23 Senna Tablet PO 11/12/24 08:59 1 tab QDAY RAMA Administration Protocol Plan Patient is a 79-year-old past medical history significant for essential hypertension, hyperlipidemia and osteoporosis presented today with a chief complaint of a ground-level fall. Patient will be admitted for treatment and management of left hip fracture. #Acute intertrochanteric fracture left hip secondary to ground-level fall #Osteoporosis Patient fell out of bed onto the floor after reaching for the remote on bedside table. On exam patient's left leg shortened and externally rotated Hip/pelvis x-ray significant for acute intertrochanteric fracture left hip with 13 mm separation of the main fracture fragments. In the ED patient received fentanyl 50 mcg IV x 1 Plan: ? Cardiac diet ? Transthoracic echocardiogram ordered to assess for wall motion abnormalities, valvular defects and ejection fraction. ? Lidocaine patch x 1 ? Ketorolac 15 Mg IV x 1 ? Morphine 4 Mg IV Q4 hourly as needed for pain 4?10 ? Hydromorphone 1 Mg IV Q4 hourly as needed for breakthrough pain ? Cardiology, Dr. Velásquez consulted for cardiac clearance. Patient is clear from cardiology ? Orthopedics, Dr Sharp consulted-patient is scheduled for surgery on 10/14 #Essential hypertension #Hyperlipidemia On admission BP 179/77. Hypertension most likely secondary to pain Plan: ? Medication reconciliation ? Hydralazine 5 Mg IV every 6 hourly as needed for SBP >180 #Varicose veins On exam patient has bilateral lower extremity varicose veins up to her knees Plan: ? On discharge will recommend compression stockings Health maintenance: Disposition: Pain control. Pending cardiac clearance and Ortho recommendations Diet: Cardiac Lines: pIVs GI Prophylaxis: Pantoprazole Thrombo Prophylaxis: None Code status: FULL CODE Assessment and plan discussed with my senior resident Dr. Malave & attending physician Dr. Jose Lozada (PGY-1)- Internal medicine resident Attending Provider Attestation/Addendum I, Yola Garcia, , attest that I was physically present for the briceño portions of the service and evaluated the patient with the resident and I reviewed and discussed the case with the resident and agree with the resident's findings and plans of care as documented above Patient seen and evaluated this AM. Daughters at bedside. She states that her pain is well controlled. No acute events overnight. Patient cleared by cardio for surgery. Npo after midnight as patient is scheduled for repair of left hip fracture tomorrow. Continue with current management. Patient denies any loss of consciousness after falling out of bed.
[2024-10-13] MEDS: ONDANSETRON INJ 2 MG/ML INJ 2 ML 4 MG IV (20:19)
[2024-10-13] MEDS: Lisinopril 20 MG TABLET 40 MG PO (21:07)
[2024-10-14] VITALS (17 sets, daily range): BP systolic 100–144; BP diastolic 50–69; PULSE 52–89; RESP 8–98; TEMP 36.1–37.3; O2SAT 92–100
[2024-10-14] MEDS: MORPHINE SULF INJ 10 MG/ML VIAL 4 MG IVP (04:13)
[2024-10-14 05:19] LABS: Basophils % (Auto) 0 % (0-2.5); Eosinophils # (Auto) 0.1 Thou/mm3 (0.0-0.5); Eosinophils % (Auto) 1 % (0-10); Hematocrit 33.5 % (36.0-46.0); Hemoglobin 11.6 g/dL (12.0-16.0); Immature Granulocytes % (Auto) 0 % (0-0); Immature Granulocytes Auto 0.03 Thou/mm3 (0.00-0.00); Lymphocytes # (Auto) 1.7 Thou/mm3 (1.0-4.8); Lymphocytes % (Auto) 26 % (10-50); Mean Corpuscular HGB Conc 34.6 g/dl (31.0-37.0); Mean Corpuscular Hemoglobin 28.9 pg (25.0-35.0); Mean Corpuscular Volume 83 fL (80-100); Monocytes # (Auto) 0.8 Thou/mm3 (0.0-0.8); Monocytes % (Auto) 11 % (0-12); Neutrophils # (Auto) 4.1 Thou/mm3 (1.8-7.7); Neutrophils % (Auto) 62 % (37-80); Nucleated Red Blood Cell % 0 /100 WBC (0); Platelet Count 192 Thou/mm3 (140-440); RDW Standard Deviation 41.2 fL (36.4-46.3); Red Blood Count 4.02 Miln/mm3 (4.00-5.20); White Blood Count 6.7 Thou/mm3 (3.6-11.0)
[2024-10-14 06:16] LABS: Alanine Aminotransferase 31 U/L (10-49); Albumin, Serum 4.3 gm/dL (3.4-4.8); Albumin/Globulin Ratio 1.7 (1.2-2.2); Alkaline Phosphatase 72 U/L (46-116); Anion Gap 9 (7-16); Aspartate Amino Transferase 41 U/L (0-34); BUN/Creatinine Ratio 21 Ratio (12-20); Bilirubin,Total 1.5 mg/dL (0.3-1.2); Blood Urea Nitrogen 17 mg/dL (9-23); Calcium 9.4 mg/dL (8.3-10.6); Calcium (Corrected) 9.4 mg/dL (8.5-10.1); Carbon Dioxide 26.2 mMol/L (20.0-31.0); Chloride 101 mMol/L (98-107); Creatinine (Component) 0.8 mg/dL (0.6-1.3); Estimated Creatinine Clearance 45.8 mL/min (>60); Globulin 2.6 gm/dL (2.3-3.5); Glucose 132 mg/dL (74-106); Magnesium 1.7 mg/dL (1.6-2.6); Osmolality,Calculated 275 (275-295); Phosphorous 3.5 mg/dL (2.4-5.1); Potassium 3.7 mMol/L (3.4-5.1); Sodium 136 mMol/L (136-145); Total Protein 6.9 gm/dL (5.7-8.2); eGFR > 60 See Note
[2024-10-14] MEDS: Lisinopril 20 MG TABLET 40 MG PO (09:47)
[2024-10-14] MEDS: hydroCHLOROthiazide 12.5 MG CAPSULE PO (09:48)
[2024-10-14] MEDS: PANTOPRAZOLE INJ 40 MG VIAL IVP (09:50)
[2024-10-14] MEDS: HYDROmorphone INJ 2 MG/ML VIAL 1 MG IVP (10:31)
[2024-10-14] MEDS: ONDANSETRON INJ 2 MG/ML INJ 2 ML 4 MG IV (10:56)
--- NOTE | 2024-10-14 10:56 | PD.RESPRO ---
Documentation for date of: 10/14/24 Subjective Subjective Interval history: 10/14: last night pt. was very nauseas and was vomiting after receiving 4mg of morphine for pain control. Pt is seen and examined at bedside this morning. family is at bedside and pt does not complain of any pain She states she is ready for surgery. She wants to eat immediately after surgery because she is very hungry since she has been NPO for surgery. Pt states she feels relaxed and has no other complaints. Exam Vital Signs Temp Pulse Resp BP Pulse Ox O2 Del Method 97.5 F 63 18 131/61 H 98 Room Air 10/14/24 08:00 10/14/24 09:48 10/14/24 08:34 10/14/24 09:48 10/14/24 08:34 10/14/24 08:00 Narrative Exam GENERAL: A&Ox3 . Awake, Not in acute distress NEURO: no focal neurological deficits HEENT: Atraumatic, Normocephalic. mucous membranes moist. Eyes open, symmetrical, & clear HEART: Normal Heart Sounds LUNGS: Clear to auscultation with no wheezing or crackles. ABDOMEN: soft, non-distended, non-tender, bowel sounds heard, no guarding or rebound tenderness SKIN: No Rash or ecchymoses EXTREMITIES: No edema, tenderness, able to move all 4 extremities, pedal pulses palpated, Varicose veins on bilateral lower extremities up to knees Objective Labs 10/14/24 04:38 10/14/24 04:38 Labs: Laboratory Results - last 24 hr 10/13/24 10/14/24 12:05 04:38 WBC 6.7 RBC 4.02 Hgb 11.6 L Hct 33.5 L MCV 83 MCH 28.9 MCHC 34.6 RDW Std Deviation 41.2 Plt Count 192 D Neut % (Auto) 62 Lymph % (Auto) 26 [place] % (Auto) 11 Eos % (Auto) 1 Baso % (Auto) 0 Neut # (Auto) 4.1 Lymph # (Auto) 1.7 [place] # (Auto) 0.8 Eos # (Auto) 0.1 Baso # (Auto) 0.0 Immature Gran # (Auto) 0.03 H Absolute Nucleated RBC 0.00 Immature Gran % 0 Nucleated RBC % 0 Sodium 136 Potassium 3.7 D Chloride 101 Carbon Dioxide 26.2 Anion Gap 9 BUN 17 Creatinine 0.8 Estim Creat Clear Calc 45.8 L eGFR > 60 BUN/Creatinine Ratio 21 H Glucose 132 H Calculated Osmolality 275 Calcium 9.4 Corrected Calcium 9.4 Phosphorus 3.5 Magnesium 1.7 Total Bilirubin 1.5 H D AST 41 H ALT 31 Alkaline Phosphatase 72 Total Protein 6.9 Albumin 4.3 Globulin 2.6 Albumin/Globulin Ratio 1.7 Blood Type A Positive Antibody Screen NEGATIVE Crossmatch See Detail Blood Bank Wristband ID Yes Quality Measures Quality Measures none Advance care planning discussed with:: patient Assessment & Plan Assessment Current Active Medications: Generic Name Dose Route Start Last Admin Trade Name Freq PRN Reason Stop Dose Admin Acetaminophen 650 mg 10/13/24 01:04 Acetaminophen 325 Mg Tablet PO 11/12/24 01:03 Q6H PRN Fever >100.3 or pain Protocol Albuterol/Ipratropium 3 ml 10/13/24 01:04 Albuterol/Ipratropium (Duoneb) Rt Sima 3 Ml Nebu INH 11/12/24 01:03 Q4HR PRN SHORTNESS OF BREATH OR WHEEZE Hydralazine HCl 5 mg 10/13/24 01:11 Hydralazine Inj 20 Mg/Ml Vial IV 11/12/24 01:10 Q6HR PRN SBP > 180 Hydromorphone HCl 1 mg 10/13/24 01:04 10/14/24 10:31 Hydromorphone Inj 2 Mg/Ml Vial IVP 10/18/24 01:03 1 mg Q4HR PRN Administration BREAKTHROUGH PAIN Lactulose 10 gm 10/13/24 09:00 10/14/24 09:50 Lactulose Syrup 20 Gm/30 Ml Udc PO 11/12/24 08:59 Not Given QDAY RAMA Protocol Lisinopril 40 mg 10/14/24 09:00 10/14/24 09:47 Lisinopril 20 Mg Tablet PO 11/13/24 08:59 40 mg QDAY RAMA Administration Ondansetron HCl 4 mg 10/13/24 01:04 10/13/24 20:19 Ondansetron Inj 2 Mg/Ml Inj 2 Ml IV 11/12/24 01:03 4 mg Q6H PRN Administration NAUSEA OR VOMITING Protocol Pantoprazole Sodium 40 mg 10/13/24 09:00 10/14/24 09:50 Pantoprazole Inj 40 Mg Vial IVP 11/12/24 08:59 40 mg QDAY RAMA Administration Sennosides 1 tab 10/13/24 09:00 10/14/24 09:50 Senna Tablet PO 11/12/24 08:59 Not Given QDAY [facility] Protocol Plan Patient is a 79-year-old past medical history significant for essential hypertension, hyperlipidemia and osteoporosis presented today with a chief complaint of a ground-level fall. Patient will be admitted for treatment and management of left hip fracture. #Acute intertrochanteric fracture left hip secondary to ground-level fall #Osteoporosis Patient fell out of bed onto the floor after reaching for the remote on bedside table. On exam patient's left leg shortened and externally rotated Hip/pelvis x-ray significant for acute intertrochanteric fracture left hip with 13 mm separation of the main fracture fragments. In the ED patient received fentanyl 50 mcg IV x 1 Plan: ? Cardiac diet ? Transthoracic echocardiogram ordered to assess for wall motion abnormalities, valvular defects and ejection fraction. ? Lidocaine patch x 1 ? Ketorolac 15 Mg IV x 1 ? please avoid Morphine for pain control as Pt becomes very nauseas with morphine ? Hydromorphone 1 Mg IV Q4 hourly as needed for breakthrough pain ? Cardiology, Dr. Velásquez consulted for cardiac clearance. Patient is clear from cardiology ? Orthopedics, Dr Sharp consulted-patient is scheduled for surgery on 10/14 #Essential hypertension #Hyperlipidemia On admission BP 179/77. Pts home meds include hydrocholorthiazide, lisinopril Plan: ? hold home hydrochlorothiazide -continue home lisinopril ? Hydralazine 5 Mg IV every 6 hourly as needed for SBP >180 #Varicose veins On exam patient has bilateral lower extremity varicose veins up to her knees Plan: ? On discharge will recommend compression stockings Health maintenance: Disposition: Pain control. Pending cardiac clearance and Ortho recommendations Diet: Cardiac Lines: pIVs GI Prophylaxis: Pantoprazole Thrombo Prophylaxis: None Code status: FULL CODE Assessment and plan discussed with my senior resident Dr. Malave & attending physician Dr. Jose Lozada (PGY-1)- Internal medicine resident Attending Provider Attestation/Addendum Yola Chávez, DO, attest that I was physically present for the briceño portions of the service and evaluated the patient with the resident and I reviewed and discussed the case with the resident and agree with the resident's findings and plans of care as documented above Patient seen and evaluated this AM. Daughter at bedside and states that the patient has been nauseous throughout night 2/2 morphine. Switched morphine to dilaudid with which patient tolerated better. She is scheduled for repair of left hip fracture later this morning. No acute events overnight otherwise.
--- NOTE | 2024-10-14 12:16 | PC.SS ---
Follow up note: Surgery with Dr. Montero today.
--- NOTE | 2024-10-14 12:30 | XR_ITS ---
Examination: Left femur AP lateral 6 views Fluoroscopy Exam date and time: October 14, 2024 1403 hours INDICATIONS: Acute intertrochanteric fracture left hip October 12, 2024, operative reduction internal fixation hip fracture today TECHNIQUE AND FINDINGS: 6 spot fluoroscopic AP lateral femur films Fluoroscopy 30 seconds Operative reduction internal fixation left hip fracture with anatomic alignment Orthopedic hardware including intramedullary sagar satisfactory position IMPRESSION: Operative reduction internal fixation left hip fracture with anatomic alignment
--- NOTE | 2024-10-14 13:34 | XR_ITS ---
Examination:Left hip AP, lateral, AP pelvis 3 views Technique: Hip AP lateral, AP pelvis, 3 views Exam date and time:1025 1439 hours INDICATIONS: Postop reduction internal fixation intertrochanteric fracture left hip today FINDINGS: Status post operative reduction internal fixation left hip fracture with anatomic alignment Satisfactory position orthopedic hardware Prominent osteopenia IMPRESSION: Postop reduction internal fixation left hip fracture with satisfactory alignment.
--- NOTE | 2024-10-14 13:34 | PD.SUROPNT ---
Date of Procedure 10/14/24 Pre Op Diagnosis Displaced intertrochanteric fracture left hip Post Op Diagnosis Same Procedure Open reduction internal fixation with trochanteric fixation nail. Synthes implant. Femur size 340 mm x 10 mm Helical blade size 95 mm Findings Refer dictation Procedure Description The patient was given general endotracheal anesthesia. Once satisfactory anesthesia was achieved the patient was put on fracture table. The fracture was manipulated and nicely secured on the fracture table. Position checked under C arm and found to be extremely good Part was thoroughly prepped and draped. Intravenous antibiotics was given at the time of anesthesia A skin incision was made about 2 inches proximal to greater trochanter extending proximally for about couple of inches. The tensor fascia abdulaziz was incised and was extended up to the greater trochanteric area Under C arm guidance a guidepin was passed from the greater trochanter into the marrow canal. Once satisfactory position was achieved then reaming up to the lesser trochanter was done Following that guidepin was removed and guidewire was placed. Once satisfactory position was achieved the length of the nail to be used was measured and decision was made to use 340 mm long nail Following that sequence reaming starting from 10 mm was done. Reaming was done up to 11.5 mm meter. A final decision was made to use size 340 mm long by 10 mm diameter nail. The above-mentioned size nail was then mounted and slowly advanced into the marrow canal. Once satisfactory position was achieved then the placement jig for the helical blade was attached. The guidewire was removed already. Following that another skin incision was made on the lateral aspect of the femur. Deeper dissection was carried out. Following that the jig was advanced up to the lateral cortex of the femur. The guide pin was passed up to the subchondral portion of the head of the femur. Following that patient was checked under C arm and once satisfactory patient was achieved then the lateral cortex was breached. Following that the subchondral portion of the head of the femur was reamed. The measurement was already done and decision was made to use size 95 mm long helical blade Following that the above-mentioned size helical blade was mounted and slowly advanced into the marrow canal. Once satisfactory position was achieved then with the help of flexible screwdriver the desk top publisher was tightened. The placement Zick for the helical blade was removed. The guide pin was also removed. Following that with the help of fixed a screwdriver the placement Zick for the nail was removed. Wound was irrigated with antibiotic solution every 4 to 5 minutes Xeroform was then with the help of 2-0 Vicryl for the soft tissue. Skin was closed with angie Sterile dressing was applied Patient tolerated procedure very well. Estimated blood loss 50 mL. Prognosis in this case is good Anesthesia GETA and other Pathology / specimen None Estimated Blood Loss 50 Surgeon Chava Sharp MD Surgical Staff Operation Date: 10/14/24 12:45 Case Staff LAMP MECHANIC: Des Loja RNair cargo specialist supervisor: Alba Kurtz
--- NOTE | 2024-10-14 13:53 | SUR.PHASEI ---
pt received from OR in recovery bay 7. pt obtunded, breathing unlabored on oxymask 8l, oral airway in place. v/s stable. pt dressing to left hip cdi. report received from Martha MORTON and Jose DAVIES.
--- NOTE | 2024-10-14 15:05 | SUR.PHASEI ---
pt awake and alert, breathing unlabored on 2l nc. v/s stable. pt dressing to left hip cdi. report called to Rupa. Pt will be transferred to room at this time.
--- NOTE | 2024-10-14 15:39 | ESCONSULT_ITS ---
RE: LANNY MOORE : 1945 DATE OF CONSULTATION: 10/13/2024 Thank you, for asking me to consult the patient whom I saw on 10/13/2024. HISTORY OF PRESENT COMPLAINT: As per history available the patient sustained a ground level fall. After that, the patient was unable to stand up and experience significant pain in the left hip region. The patient was brought to the emergency room. X-ray was obtained, which revealed displaced fracture of the intertrochanteric region of the left hip. The patient was admitted for further management. PAST MEDICAL HISTORY: Significant for high blood pressure, hyperlipidemia, osteoporosis. PAST SURGICAL HISTORY: Vaginal hysterectomy and ureterocele repair in 2019, cholecystectomy. DRUG HISTORY: The patient is taking albuterol, hydralazine, alendronate, hydrochlorothiazide, lisinopril, meclizine, and aldosterone. ALLERGIES: NIL KNOWN. FAMILY HISTORY AND SOCIAL HISTORY: Noncontributory in this case. PHYSICAL EXAMINATION: GENERAL: Fully alert and oriented lady. She is hard of hearing. VITAL SIGNS: Pulse is 82/min. Blood pressure 140/76. NECK: Soft, supple. No masses felt. Trachea is centrally placed. CARDIOVASCULAR SYSTEM: First and second heart sound normal. No murmur heard. RESPIRATORY SYSTEM: Bilateral vascular breath sounds. Chest is clear. ABDOMEN: Soft. No mass felt. Bowel sounds present. EXTREMITIES: Left lower limb examination revealed externally rotated and shortened. There is tenderness in the left groin area. Neurovascularly it is intact. DIAGNOSTIC DATA: X-ray confirmed intertrochanteric fracture. The patient and the family were explained the diagnosis and prognosis. Explained that nail and screw will be placed on. Risks with anesthesia was explained and that includes, but not limited to reaction to anesthetic agents, cardiac arrest, rarely it might be fatal. Risks of operation includes infection and if that happens, the patient may need further surgical procedure. Other risks include delayed healing, wound dehiscence etc. No guarantees given regarding healing process. Possibility of blood transfer was discussed. The patient and the family stated that they would accept blood when it is absolutely necessary. Accordingly, surgery is booked for 10/14/2024. Appropriate laboratories done. DT: 13:44:00 TT: 15:14:00 Ref: [id number] - TID: [id number]
[2024-10-14] MEDS: KETOROLAC INJ 30 MG/ML VIAL IVP (19:10)
[2024-10-14] MEDS: ceFAZolin/D5W 1 GM IVPB 1 GM/50 ML BAG IV (21:00)
[2024-10-15] VITALS (10 sets, daily range): BP systolic 103–134; BP diastolic 47–73; PULSE 70–99; RESP 14–98; TEMP 36.2–36.6; O2SAT 92–98
[2024-10-15] MEDS: ceFAZolin/D5W 1 GM IVPB 1 GM/50 ML BAG IV (03:42)
[2024-10-15 06:05] LABS: Basophils % (Auto) 0 % (0-2.5); Eosinophils % (Auto) 0 % (0-10); Hematocrit 28.4 % (36.0-46.0); Hemoglobin 9.8 g/dL (12.0-16.0); Immature Granulocytes % (Auto) 1 % (0-0); Immature Granulocytes Auto 0.05 Thou/mm3 (0.00-0.00); Lymphocytes # (Auto) 0.6 Thou/mm3 (1.0-4.8); Lymphocytes % (Auto) 7 % (10-50); Mean Corpuscular HGB Conc 34.5 g/dl (31.0-37.0); Mean Corpuscular Hemoglobin 28.8 pg (25.0-35.0); Mean Corpuscular Volume 84 fL (80-100); Monocytes # (Auto) 0.6 Thou/mm3 (0.0-0.8); Monocytes % (Auto) 7 % (0-12); Neutrophils # (Auto) 7.9 Thou/mm3 (1.8-7.7); Neutrophils % (Auto) 86 % (37-80); Nucleated Red Blood Cell % 0 /100 WBC (0); Platelet Count 196 Thou/mm3 (140-440); RDW Standard Deviation 41.5 fL (36.4-46.3); White Blood Count 9.3 Thou/mm3 (3.6-11.0)
[2024-10-15 06:42] LABS: Alanine Aminotransferase 22 U/L (10-49); Albumin, Serum 3.8 gm/dL (3.4-4.8); Albumin/Globulin Ratio 1.7 (1.2-2.2); Alkaline Phosphatase 62 U/L (46-116); Anion Gap 12 (7-16); Aspartate Amino Transferase 27 U/L (0-34); BUN/Creatinine Ratio 27 Ratio (12-20); Bilirubin,Total 0.4 mg/dL (0.3-1.2); Blood Urea Nitrogen 27 mg/dL (9-23); Calcium 8.7 mg/dL (8.3-10.6); Calcium (Corrected) 8.9 mg/dL (8.5-10.1); Carbon Dioxide 22.2 mMol/L (20.0-31.0); Chloride 103 mMol/L (98-107); Estimated Creatinine Clearance 36.6 mL/min (>60); Globulin 2.3 gm/dL (2.3-3.5); Glucose 192 mg/dL (74-106); Magnesium 1.9 mg/dL (1.6-2.6); Osmolality,Calculated 283 (275-295); Potassium 3.8 mMol/L (3.4-5.1); Sodium 137 mMol/L (136-145); Total Protein 6.1 gm/dL (5.7-8.2); eGFR 57 See Note
[2024-10-15] MEDS: SENNA TABLET 1 TAB PO (09:32)
[2024-10-15] MEDS: PANTOPRAZOLE INJ 40 MG VIAL IVP (09:32)
[2024-10-15] MEDS: LACTULOSE SYRUP 20 GM/30 ML UDC 10 GM PO (09:32)
[2024-10-15] MEDS: NAPH,KPH MBDB 1 PACKET (1.5 GM) PO (09:33)
--- NOTE | 2024-10-15 10:24 | ESPR_ITS ---
<Statement entered by Benjamin Cruz MD - 10/16/24 13:12> Agree with plan and examination finding on the note below. Patient seen and examined at bedside today. Labs and imaging reviewed. Patient care discussed with my attending Dr. Redd and co-resident Dr. Pitts. Documentation for date of: 10/15/24 Subjective Subjective Interval history: Patient Maori-speaking and interaction facilitated by registered healthcare science interpreter. Patient was seen and examined at bedside this AM. Patient's daughter at bedside No acute exents overnight. Patient tolerating diet, adequate urine output and mentation is at baseline. Patient endorses no more pain in her hip and she can flex both of the hip and knees on the bed. She has not had a bowel movement since hospitalization. Patient is postop day 1 with a Hb 9.8 down from 11.6. PT eval was ordered for patient who recommended home health. Orthopedic surgeon, Dr. Sharp was contacted for recommendations. He recommended DVT prophylaxis with Eliquis 2.5 Mg p.o. twice daily and to follow- up with him as outpatient within 1 week of discharge. Exam Vital Signs Temp Pulse Resp BP Pulse Ox O2 Del Method O2 Flow Rate 97.1 F 94 19 108/47 L 92 L Nasal Cannula 2 10/15/24 08:00 10/15/24 09:24 10/15/24 08:00 10/15/24 09:24 10/15/24 08:00 10/15/24 08:00 10/15/24 08:00 Narrative Exam Constitutional Alert, oriented x 3 and mild distress. Elderly female HEENT Vision grossly intact. Patent nares. Trachea midline Respiratory Chest normal on inspection and decreased air entry at bases with some atelectasis Cardiovascular S1 and S2 audible, RRR. No murmurs carotid bruit. JVD not assessed Abdominal Soft and non tender to palpation in all quadrants. BS + Genitourinary No bladder tenderness, no flank pain. Normal to palpation Musculoskeletal Extremities tone within normal limits. No LE edema. Limb length discrepancy less, clean and dry bandage on lateral aspect left hip Neurological CN II - XII grossly intact. Extremity motor and sensation grossly intact. Skin Warm, dry and intact. Varicose veins on bilateral lower extremities up to knees Psychiatric Patient has good affect, is cooperative Objective Labs 10/16/24 05:05 10/16/24 05:05 Labs: Laboratory Results - last 24 hr 10/15/24 05:24 WBC 9.3 RBC 3.40 L Hgb 9.8 L Hct 28.4 L MCV 84 MCH 28.8 MCHC 34.5 RDW Std Deviation 41.5 Plt Count 196 Neut % (Auto) 86 H Lymph % (Auto) 7 L [place] % (Auto) 7 Eos % (Auto) 0 Baso % (Auto) 0 Neut # (Auto) 7.9 H Lymph # (Auto) 0.6 L [place] # (Auto) 0.6 Eos # (Auto) 0.0 Baso # (Auto) 0.0 Immature Gran # (Auto) 0.05 H Absolute Nucleated RBC 0.00 Immature Gran % 1 H Nucleated RBC % 0 Sodium 137 Potassium 3.8 Chloride 103 Carbon Dioxide 22.2 Anion Gap 12 BUN 27 H Creatinine 1.0 Estim Creat Clear Calc 36.6 L eGFR 57 L BUN/Creatinine Ratio 27 H Glucose 192 H D Calculated Osmolality 283 Calcium 8.7 Corrected Calcium 8.9 Phosphorus 2.0 L Magnesium 1.9 Total Bilirubin 0.4 D AST 27 ALT 22 Alkaline Phosphatase 62 Total Protein 6.1 Albumin 3.8 D Globulin 2.3 Albumin/Globulin Ratio 1.7 Quality Measures Quality Measures none Advance care planning discussed with:: patient Assessment & Plan Assessment Current Active Medications: Generic Name Dose Route Start Last Admin Trade Name Freq PRN Reason Stop Dose Admin Acetaminophen 650 mg 10/13/24 01:04 Acetaminophen 325 Mg Tablet PO 11/12/24 01:03 Q6H PRN Fever >100.3 or pain Protocol Albuterol/Ipratropium 3 ml 10/14/24 11:34 Albuterol/Ipratropium (Duoneb) Rt Sima 3 Ml Nebu INH 11/13/24 11:33 Q4HRRT PRN WHEEZING Diclofenac Sodium 4 gm 10/15/24 10:12 Diclofenac 1% Top Gel 100 Gm Tube TOP 11/14/24 13:59 TID PRN Pain 1-6 Hydralazine HCl 5 mg 10/13/24 01:11 Hydralazine Inj 20 Mg/Ml Vial IV 11/12/24 01:10 Q6HR PRN SBP > 180 Hydromorphone HCl 1 mg 10/14/24 19:00 Hydromorphone Inj 2 Mg/Ml Vial IVP 10/18/24 01:03 Q4HR PRN BREAKTHROUGH PAIN Ketorolac Tromethamine 15 mg 10/15/24 10:14 Ketorolac Inj 30 Mg/Ml Vial IVP 10/19/24 18:55 Q8HR PRN PAIN SCALE 4-10(Mod-Sev Lactulose 10 gm 10/15/24 09:00 10/15/24 09:32 Lactulose Syrup 20 Gm/30 Ml Udc PO 11/12/24 08:59 10 gm QDAY RAMA Administration Protocol Lisinopril 40 mg 10/14/24 09:00 10/15/24 09:24 Lisinopril 20 Mg Tablet PO 11/13/24 08:59 Not Given QDAY RAMA Morphine Sulfate 4 mg 10/14/24 19:00 Morphine Sulf Inj 10 Mg/Ml Vial IV 10/19/24 15:36 Q4HR PRN PAIN SCALE 4-10(Mod-Sev Ondansetron HCl 4 mg 10/14/24 15:37 Ondansetron Inj 2 Mg/Ml Inj 2 Ml IV 11/13/24 15:36 Q6HR PRN NAUSEA OR VOMITING Pantoprazole Sodium 40 mg 10/13/24 09:00 10/15/24 09:32 Pantoprazole Inj 40 Mg Vial IVP 11/12/24 08:59 40 mg QDAY RAMA Administration Sennosides 1 tab 10/13/24 09:00 10/15/24 09:32 Senna Tablet PO 11/12/24 08:59 1 tab QDAY RAMA Administration Protocol Plan Patient is a 79-year-old past medical history significant for essential hypertension, hyperlipidemia and osteoporosis presented today with a chief complaint of a ground-level fall. Patient will be admitted for treatment and management of left hip fracture. #Day 1 postoperative left hip fixation with intertrochanteric nail and Synthes implant #Acute intertrochanteric fracture left hip secondary to ground-level fall #Osteoporosis Patient fell out of bed onto the floor after reaching for the remote on bedside table. On exam patient's left leg shortened and externally rotated Hip/pelvis x-ray significant for acute intertrochanteric fracture left hip with 13 mm separation of the main fracture fragments. In the ED patient received fentanyl 50 mcg IV x 1 Plan: ? Cardiac diet ? Please avoid Morphine for pain control as Pt becomes very nauseas with morphine ? Hydromorphone 1 Mg IV Q4 hourly as needed for breakthrough pain - PT recommended home health upon discharge. Will order - Orthopedics recommended DVT prophylaxis with Eliquis 2.5 Mg p.o. twice daily and to follow-up with him as outpatient within 1 week of discharge. ? Cardiology, Dr. Velásquez consulted for cardiac clearance. Patient is clear from cardiology ? Orthopedics, Dr Sharp consulted. Appreciate recommendations #Essential hypertension #Hyperlipidemia On admission BP 179/77. Pts home meds include hydrocholorthiazide, lisinopril Plan: ? Hold home hydrochlorothiazide - Continue home lisinopril ? Hydralazine 5 Mg IV every 6 hourly as needed for SBP >180 #Varicose veins On exam patient has bilateral lower extremity varicose veins up to her knees Plan: ? On discharge will recommend compression stockings #Reduced EGFR Patient does not qualify for CARMINA but had reduced EGFR of 57 from >60. Plan: ? Decrease ketorolac frequency to Q8 hourly from every 6 hourly ? Will continue lisinopril for now, if any further decrease of kidney function we will adjust medication prior to discharge. Health maintenance: Disposition: Monitoring hemoglobin overnight. Anticipate discharge within next 24 hours with home health and follow-up with orthopedics within 1 week. Diet: Cardiac Lines: pIVs GI Prophylaxis: Pantoprazole Thrombo Prophylaxis: Apixaban Code status: FULL CODE Plan of care discussed with Attending Dr. Redd and PGY3 Dr. Nancy Pitts MD PGY 1 Attending Provider Attestation/Addendum 79-year-old female status post ORIF left hip. Patient will need bowel regimen. Discussed with housestaff. Referral to home health.
[2024-10-15] MEDS: KETOROLAC INJ 30 MG/ML VIAL 15 MG IVP ×2 (10:51→18:24)
[2024-10-15] MEDS: APIXABAN 2.5 MG TABLET PO (21:27)
[2024-10-15] MEDS: MELATONIN 3 MG TABLET PO (21:50)
[2024-10-16] VITALS (7 sets, daily range): BP systolic 106–133; BP diastolic 53–68; PULSE 69–97; RESP 14–18; TEMP 36.2–36.7; O2SAT 94–98
[2024-10-16] MEDS: KETOROLAC INJ 30 MG/ML VIAL 15 MG IVP (02:30)
--- NOTE | 2024-10-16 02:34 | PC.NURSE ---
accessed pt's chart to assist main RN. Main RN on lunch.
[2024-10-16 05:44] LABS: Basophils % (Auto) 0 % (0-2.5); Eosinophils % (Auto) 0 % (0-10); Hematocrit 25.3 % (36.0-46.0); Immature Granulocytes % (Auto) 0 % (0-0); Immature Granulocytes Auto 0.04 Thou/mm3 (0.00-0.00); Lymphocytes # (Auto) 1.6 Thou/mm3 (1.0-4.8); Lymphocytes % (Auto) 17 % (10-50); Mean Corpuscular HGB Conc 34.4 g/dl (31.0-37.0); Mean Corpuscular Hemoglobin 29.1 pg (25.0-35.0); Mean Corpuscular Volume 85 fL (80-100); Monocytes # (Auto) 0.7 Thou/mm3 (0.0-0.8); Monocytes % (Auto) 8 % (0-12); Neutrophils % (Auto) 74 % (37-80); Nucleated Red Blood Cell % 0 /100 WBC (0); Platelet Count 177 Thou/mm3 (140-440); RDW Standard Deviation 43.4 fL (36.4-46.3); Red Blood Count 2.99 Miln/mm3 (4.00-5.20); White Blood Count 9.4 Thou/mm3 (3.6-11.0)
[2024-10-16 05:48] LABS: Hemoglobin 8.7 g/dL (12.0-16.0)
[2024-10-16 06:07] LABS: Anion Gap 8 (7-16); BUN/Creatinine Ratio 33 Ratio (12-20); Blood Urea Nitrogen 30 mg/dL (9-23); Calcium 8.3 mg/dL (8.3-10.6); Carbon Dioxide 25.7 mMol/L (20.0-31.0); Chloride 106 mMol/L (98-107); Creatinine (Component) 0.9 mg/dL (0.6-1.3); Estimated Creatinine Clearance 40.7 mL/min (>60); Glucose 109 mg/dL (74-106); Osmolality,Calculated 286 (275-295); Phosphorous 2.3 mg/dL (2.4-5.1); Potassium 4.2 mMol/L (3.4-5.1); Sodium 140 mMol/L (136-145); eGFR > 60 See Note
[2024-10-16] MEDS: APIXABAN 2.5 MG TABLET PO (08:30)
[2024-10-16] MEDS: PANTOPRAZOLE INJ 40 MG VIAL IVP (08:31)
[2024-10-16] MEDS: Lisinopril 20 MG TABLET 40 MG PO (08:31)
[2024-10-16] MEDS: POT PHOS 15 mMol in NS 250 ML 15 MMOL/250 ML BAG 62.5 MMOL IV (10:37)
--- NOTE | 2024-10-16 12:24 | PC.SS ---
SS was informed pt Becky RN-PT recommends a FWW upon DC. SS submitted referral via [facility], pending responses
[2024-10-16 13:59] LABS: Hematocrit 27.2 % (36.0-46.0); Hemoglobin 9.2 g/dL (12.0-16.0)
--- NOTE | 2024-10-16 14:27 | PD.RESDS ---
Planned Discharge Date 10/16/24 DS: Providers Provider Date of admission: 10/13/24 01:05 Primary care physician: Tanvir Donnelly PA-C Admitting Provider: Obey Prescott MD Attending Provider on Admission: Obey Prescott MD Consults: 10/13/24 00:55 Consult to Cardiology Stat Comment: Cardiac Clearance for Left hip surgery Consulting Provider: Gene Velásquez 10/13/24 01:10 Consult to Orthopedic Stat Comment: Consulting Provider: Chava Sharp 10/14/24 15:37 Referral Physical Therapy Routine Comment: Gait Training Physician Instructions: Instructions: Both legs full weight bear Attending Provider on DC: Riaz Byers MD Discharging Provider: Riaz Byers MD DS: Diagnosis Problem List Completed Was Problem List Reviewed/Reconciled?: Yes Hospital Course Hospital Course Hospital course: 79-year-old female with past medical history of essential hypertension, hyperlipidemia, osteoporosis presented on 10/13/2024 with a ground-level fall; moreover, in the ED, patient had a hip/pelvis x-ray which showed acute intertrochanteric fracture of the left hip with 13 mm separation of the main fracture fragments. Orthopedic surgeon, Dr. Sharp, was consulted and on 10/14 a open reduction internal fixation with trochanteric fixation with nail was completed. Patient tolerated the procedure without any acute complications. PT eval was ordered and recommendations were that the patient may be safely discharged home with home health. Patient will be started on DVT prophylaxis with Eliquis 2.5 mg p.o. twice daily and told to follow-up with both PCP in 1 week along with instructions to make an appointment with Dr. Sharp outpatient.Patient will be discharged with the following strict instructions. Please follow-up with PCP within 1-2 weeks Continue taking Eliquis 2.5mg po daily to prevent blood clots Please call Dr. Sharp office (orthopedic surgeon) within 1-2 days to schedule appointment If your symptoms worsen or if you develop new and/or worsening chest pain, shortness of breath or dizziness please come back to the ED immediately. Hospital diagnosis: #Postoperative left hip fixation with intertrochanteric nail and Synthes implant #Acute intertrochanteric fracture left hip secondary to ground-level fall #Osteoporosis #Essential hypertension #Hyperlipidemia #Varicose veins #Reduced EGFR Riaz Byers, PGY-1 Senior resident attestation: Patient evaluated and examined at the bedside, plan of care discussed with rest of the team including my attending physician, except as noted. Frieda PGY2 Status at Discharge Overall status at discharge: patient is progressing back to baseline Time Spent with Patient Time attestation: Total time spent providing and/or coordinating discharge services: 45 minutes Time spent: Greater than 30 minutes Home Health Home Health Referral Orders: 10/15/24 14:22 Home Health Referral Routine Reason For Exam: sp ORIF left hip,need physical therapy Home-Bound The patient must either because of illness or injury, need the aid of supportive devices such as crutches, canes, wheelchairs, and walkers; the use of special transportation; or the assistance of another person in order to leave their place of residence; OR have a condition such that leaving his or her home is medically contraindicated. In addition, the patient also meets the following criteria: patient is normally unable to leave the home and leaving home requires considerable taxing effort. Addendum to Home Health Certification Practitioner's Certification: I certify that the patient has been under my care in the hospital and the care of attending physician (see below). We had a bskk-za-[id number] encounter on (see date below). My clinical findings indicate that the patient is home bound per the above criteria and the Home Health Services noted in these orders are medically necessary. The primary reason for the nxoi-[id number]-[id number] encounter is related to the fact that the patient requires home health services. Date Certifying Derj-zx-Aocg Physician Encounter: 10/15/24 Physician's Name who will Assume Oversight for Services: Tanvir Donnelly Physician's Phone No.who will Assume Oversight for Service: PERFORMANCE SOLUTIONS SPECIALIST - Community Resources: Yes PT to Evaluate: Yes PT to evaluate and provide a treatmnet plan to increase patient's mobility and strength. Wound Care: No IV Therapy: No RN Safety Evaluation: Yes RN to evaluate and create a plan of care that will produce positive outcomes. Palliative Treatment: No Palliative treatment and evaluate the need for hospice. Home Health Aide - Personal Care: Yes Home Health Aide to assist with any ADL's. Exam Vital Signs Temp Pulse Resp BP Pulse Ox O2 Del Method O2 Flow Rate 98.1 F 95 18 108/56 L 97 Nasal Cannula 2 10/16/24 12:00 10/16/24 12:44 10/16/24 12:44 10/16/24 12:00 10/16/24 12:44 10/16/24 12:00 10/16/24 12:00 Narrative Exam Constitutional Alert, oriented x 3 and mild distress. Elderly female HEENT Vision grossly intact. Patent nares. Trachea midline Respiratory Chest normal on inspection and decreased air entry at bases with some atelectasis Cardiovascular S1 and S2 audible, RRR. No murmurs carotid bruit. JVD not assessed Abdominal Soft and non tender to palpation in all quadrants. BS + Genitourinary No bladder tenderness, no flank pain. Normal to palpation Musculoskeletal Extremities tone within normal limits. No LE edema. Limb length discrepancy less, clean and dry bandage on lateral aspect left hip Neurological CN II - XII grossly intact. Extremity motor and sensation grossly intact. Skin Warm, dry and intact. Varicose veins on bilateral lower extremities up to knees Psychiatric Patient has good affect, is cooperative Discharge Plan Plan Patient Disposition: Home w/HOME HEALTH Patient condition on transfer: Stable Care Plan Goals: Follow-up with your primary care physician within 5 days of discharge from hospital, and go over discharge medications. Call Dr Sharp's office for appointment. Keep dressing to right hip clean and dry. In case of worsening symptoms, please return to the emergency room. Aries un seguimiento con bucio m?dico de atenci?n primaria dentro de los 5 d?as posteriores al brenda del hospital y revise los medicamentos al brenda. Llame al consultorio del Dr. Sharp para programar laureano erick. Mantenga limpio y seco el vendaje de la cadera derecha. En anita de que los s?ntomas empeoren, regrese a la valente de emergencias. Prescriptions/Referrals Prescriptions/Med Rec: New Eliquis 2.5 mg Tablet 2.5 mg PO BID 20 Days Qty: 40 0RF hydrocodone-acetaminophen 7.5-325 mg tablet 1 tab PO Q8H MDD 3 pills daily PRN (Reason: pain) Qty: 14 0RF pantoprazole [Protonix] 40 mg tablet,delayed release (DR/EC) 40 mg PO QDAY Qty: 7 0RF sennosides [senna] 8.6 mg tablet 8.6 mg PO BID PRN (Reason: constipation) Qty: 14 0RF Continued lisinopril 40 mg Tablet 40 mg PO QDAY 30 Days Qty: 30 4RF hydrochlorothiazide 12.5 mg Tablet 12.5 mg PO DAILY 30 Days Qty: 30 4RF alendronate 70 mg tablet 70 mg PO QWEEK Discontinued atorvastatin 20 mg tablet 20 mg PO HS Patient Comments: take 1 tablet by mouth once daily ondansetron 4 mg tablet,disintegrating 4 mg PO Q4H PRN (Reason: nausea and vomiting) Qty: 10 0RF Rx Instructions: 1st dose 1-2 hr before radiation meclizine 25 mg tablet 25 mg PO BID PRN (Reason: dizziness) Qty: 14 0RF Referrals: Tanvir Donnelly PA-C [Primary Care Provider] - Chava Sharp MD [Physician] - Patient/Caregiver Discharge Instructions Other Discharge Activity Instructions:: Please follow-up with PCP within 1-2 weeks Continue taking Eliquis 2.5mg po daily to prevent blood clots Please call Dr. Sharp office (orthopedic surgeon) within 1-2 days to schedule appointment If your symptoms worsen or if you develop new and/or worsening chest pain, shortness of breath or dizziness please come back to the ED immediately. Education Materials: Hip Precautions, After a Hip Fracture: Common Questions, Fx Hip Surg Dc Print Language: [place] Citizen Stand Alone Forms: Amber Award Info., Patient Portal Info Letter Discharge Order Discharge Orders: Discharge (Routine); Ordered 10/16/24 Ordered By: Riaz Byers Quality Discharge Quality Measures VTE prophylaxis Attestestation Attestation I discussed with and supervised the resident physician who took care of this patient. I agree with the assessment and discharge plan as above.
--- NOTE | 2024-10-17 08:14 | PC.CC ---
Addendum entered by Justo Sotelo RN 10/21/24 07:37: Start of care 10/21/24 with [facility]. Addendum entered by Sulema Estrada RN 10/17/24 15:28: Pending insurance auth and start of care date from [facility]. Addendum entered by Nanda Snell RN 10/17/24 09:13: Pt booked with [facility], pending SOC Original Note: Pt entered into [facility] and referrals sent to all HH agency none were specified
== END 2024-10-16 17:02 | disposition home health service (06) | DRG 308 ==
LOC: SERX 10-13 00:02 → SERHOLD 10-13 01:35 → S3SX 10-13 13:17
PROVIDERS: Orthopaedic Surgery; Admitting Provider Internal Medicine; Emergency Provider Emergency Medicine; PCP Family Medicine; Visit Provider Internal Medicine
PROC: 0QS704Z Reposition Left Upper Femur with Internal Fixation Device, Open Approach (ICD-10-PCS; CPT 27245; principal; 2024-10-14 12:30)
DX: S72.142A Displaced intertrochanteric fracture of left femur, initial encounter for closed fracture (principal); E78.5 Hyperlipidemia, unspecified; I83.93 Asymptomatic varicose veins of bilateral lower extremities; M81.0 Age-related osteoporosis without current pathological fracture; I10 Essential (primary) hypertension; Z90.710 Acquired absence of both cervix and uterus; Z90.49 Acquired absence of other specified parts of digestive tract; Z79.899 Other long term (current) drug therapy; W06.XXXA Fall from bed, initial encounter; Y92.003 Bedroom of unspecified non-institutional (private) residence as the place of occurrence of the external cause
CPT/HCPCS: 36415; 71045; 73502; 76000; 80048; 80053; 80061; 80307; 80320; 81001; 83690; 83735; 84100; 84443; 84484; 85014; 85018; 85025; 85610; 85730; 86850; 86900; 86901; 86920; 87081; 87811; 93005; 93225; 93306; 94664; 96374; 96375; 97162; 99285; A4217; A4649; C1713; C1769; C1776; J0131; J0689; J0690; J1100; J1580; J1885; J2270; J2371; J2405; J2470; J2704; J2795; J3010; J3490; J7999; A9270; G0480

== ENCOUNTER 2024-10-17 11:21 | Emergency (ER) | payer MEDICAID, SELFPAY ==
[2024-10-17 11:23] VITALS: BP 121/61; PULSE 65; RESP 16; TEMP 36.7; O2SAT 94
--- NOTE | 2024-10-17 11:59 | EDNOTE_ITS ---
ED Syncope RME/HPI General Chief Complaint: Syncope / Near Syncope Stated Complaint: SYNCOPE Time Seen by Provider: 10/17/24 11:53 Arrival date/time: 10/17/24 11:21 RME / HPI RME / HPI narrative: 79 year old female with history of hypertension, hyperlipidemia, osteoporosis, s/p ORIF left hip on 10/14/[address] Sharp presents to the ED BIBA from home for evaluation after syncopal episodes today. Per medics, family on scene reported the patient had got up to use the restroom with her walker and while walking noted to lose consciousness, lasting ~ 1 minute. States after regaining consciousness had a subsequent syncopal episode lasting ~ 1 minute. No head injury reported. While in the ED patient states she feels fine and does not recall the falls although did recall feeling weak prior to syncope. No fevers, chills, chest pain, cough, shortness of breath, abdominal pain, n/v/d, or urinary symptoms. Denies any hip/leg pain. Related Data Home Medications ?Medication ?Instructions ?Recorded ?Confirmed alendronate 70 mg tablet 70 mg PO QWEEK 10/13/2409/16 Previous Rx's ?Medication ?Instructions ?Recorded hydrochlorothiazide 12.5 mg tablet 12.5 mg PO DAILY 30 days #30 tabs 06/02/20 lisinopril 40 mg tablet 40 mg PO QDAY 30 days #30 ta bs 06/02/20 apixaban 2.5 mg tablet (Eliquis) 2.5 mg PO BID 20 days #40 tabs 10/16/24 hydrocodone 7.5 mg-acetaminophen 1 tab PO Q8H PRN pain #14 tabs 10/16/24 325 mg tablet pantoprazole 40 mg tablet,delayed 40 mg PO QDAY #7 tab s 10/16/24 release (Protonix) sennosides 8.6 mg tablet (senna) 8.6 mg PO BID PRN con stipation #14 10/16/24 tabs Allergies Allergy/AdvReac Type Severity Reaction Status Date / Time No Known Allergies Allergy Verified 04/12/22 13:32 Review of Systems Review of Systems Narrative Review of Systems: Gen: No fever, no chills, no weight loss EYES: No discharge, no visual changes, no pain HEENT: No ear pain, no congestion, no sore throat PULM: no shortness of breath, no cough, no congestion CV: +syncope. No chest pain, no dyspnea on exertion, no palpitations, no chest tightness GI: No nausea, no vomiting, no diarrhea, no pain, no constipation : No frequency, no urgency,? no dysuria Musc/skel: No joint pain, no back pain Skin: No rash, no ecchymosis, no lesions Neuro: No weakness, no headache Past Medical History Past Medical History CARDIAC: Positive Hypertension and Varicose Veins GASTROINTESTINAL: Positive Gastrointestinal Disorders, Gall Bladder Disease and Hemorrhoids REPRODUCTIVE: Positive Previous Pregnancies Family History FAMILY HISTORY: Negative Family Psychiatric Problems, Family Respiratory Disorders, Family Cardiac Disorders, Family Gastrointestinal Problems, Family Cancer, Family Surgery or Family Anesthesia Reaction Surgical History SURGICAL: Positive Hysterectomy; Negative Pacemaker Social History SMOKING STATUS: Never smoker SUBSTANCE USE: does not use ED Exam Narrative Physical exam: GENERAL APPEARANCE: AxOx4, no obvious distress, nontoxic appearing HEENT: NC, AT. MMM. EOMI, clear conjunctiva, oropharynx clear. NECK: Supple without lymphadenopathy. No stiffness or restricted ROM. HEART: Normal rate and regular rhythm, normal S1/S1, no m/r/g LUNGS: CTAB, moving air well. No crackles or wheezes are heard. ABDOMEN: Soft, nontender, nondistended with good bowel sounds heard. BACK: No midline C/T/L spine pain or deformity, No CVAT, no obvious deformity. EXTREMITIES: Without cyanosis, clubbing or edema. MUSCULOSKELETAL: FROM of all major joints, no chest tenderness NEUROLOGICAL: Grossly nonfocal. Alert and oriented, moving all 4 extremities. CN not formally tested but appear grossly intact. Skin: Warm and dry without any rash. Course Quality Measures none Orders Category Date Time Status EKG (ED ONLY) *Do not use* NOW Care 10/17/24 12:[address] head/brain wo con Stat Exams 10/17/24 14:03 Completed EKG (ED Only) Stat Exams 10/17/24 12:00 Draft CBC Stat Lab 10/17/24 12:39 Completed CMP [Comprehensive Metabolic Panel] Stat Lab 10/17/24 12:39 Completed Troponin I Stat Lab 10/17/24 12:39 Completed Troponin I Stat Lab 10/17/24 14:45 Completed HYDROcodone*/APAP 5/325 [Temple 5/325] Med 10/17/24 14:05 Discontinued 1 tab PO X1 ONE Reevaluation(s) Reevaluation #1: Patient remains clinically stable throughout the emergency department visit. We reviewed all the results, analysis, and treatment plans. Patient is amenable to discharge. Strict return precautions were outlined. Patient was discharged in stable condition. Time: 17:10 Vital Signs Vital signs: Vital Signs Temperature 98.1 F 10/17/24 11:23 Pulse Rate 65 10/17/24 11:23 Respiratory Rate 16 10/17/24 11:23 Blood Pressure 121/61 10/17/24 11:23 Pulse Oximetry (%) 94 L 10/17/24 11:23 Oxygen Delivery Method Room Air 10/17/24 11:23 Pulse ox is 94% on room air which is adequate. Syncope MDM Narrative MDM Narrative:: Robyn Chávez am scribing for and in the presence of Dr. Rhodes. Patient data External records reviewed:: [facility] previous records (I reviewed admission from 10/12/2024 through 10/16/2024) and EMS form Clinical information provided by:: patient and EMS Social determinants that could affect healthcare access:: none Patient has the following chronic illnesses:: hypertension, hyperlipidemia, osteoporosis, s/p ORIF left hip on 10/14/[address] Sharp How is presenting disease/condition affected by chronic disease/condition?: exacerbated by Evaluation data The following diagnostics were reviewed and interpreted by me:: lab results and EKG tracing(s) (Sinus rhythm, rate 62, normal axis, normal intervals, no acute ST or T-wave changes, no STEMI. ) Lab and/or radiology exams considered but not ordered:: None Interpretation Summary: Ordering Physician: Shaan Rhodes MD Date of Service: 10/17/24 Procedure(s): CT head/brain wo con Accession Number(s): [id number] cc: Brad Broussard MD; Shaan Rhodes MD; Des Vee MD~ Examination: CT brain head without contrast. 2-D sagittal coronal reconstructions Date and time of exam:October 17, 2024 1555 hours INDICATIONS: Syncopal episode today, patient is anticoagulated COMPARISON: April 09, 2022 CTDI: vol (mGy):43.8 DLP: (mGycm):847 Technique: Multiple CT axial sections of the brain have been obtained, 5 mm slice thickness. Contrast has not been administered. 2-D sagittal, coronal reconstructions have been obtained Low dose protocols were performed. One or more of the following dose reduction techniques were used; automated exposure control, adjustment of the mA and/or KV according to patient size, use of iterative reconstruction technique. Findings: No significant ventricular enlargement. Intra-axial or extra-axial hemorrhage density is not seen. No mass effect or midline shift Basal cisterns are not remarkable. Fourth ventricle is midline. Cranial vault intact. Impression: Negative for acute hemorrhage, mass effect or midline shift Advise clinical correlation follow-up accordingly Dictated By: Des Vee MD Signed By: <Electronically signed by Des Vee MD in OV> 10/17/24 1621 Medications / Prescriptions Medications or Prescriptions considered but not ordered:: None Medication administrations:: Medication Administration History Discontinued Medications Hydrocodone Bitart/Acetaminophen (Hydrocodone/Apap 5/325 Tablet) 1 tab PO X1 ONE Stop: 10/17/24 14:06 Last Admin: 10/17/24 15:53 Dose: 1 tab Documented By: Admin: 10/17/24 14:45 Dose: Not Given Documented By: GM Non-Admin Reason: Patient Refused See above Consultations Consultation(s) initiated? (list below): No Diagnosis Syncope Differential Diagnosis: syncope due to orthostatic hypotension, vasovagal syncope and dehydration Most likely diagnosis given after review of the tests above:: Syncope Admission Indicated Admission indicated?: not indicated Admission Request Was there a request for admission?: No Disposition Plan Disposition Plan: Discharge Discharge Attestation Discharge Attestation: The patient and all family members were given an opportunity to ask questions and understood the discharge instructions. Discharge instructions specifically effects, indications for sooner follow up or return to the emergency department, and the expected course of current diagnosis. Patient condition: Stable Discharge Plan Plan Patient Disposition: HOME (Self Care) Prescriptions/Referrals Prescriptions/Med Rec: No Action lisinopril 40 mg Tablet 40 mg PO QDAY 30 Days Qty: 30 4RF hydrochlorothiazide 12.5 mg Tablet 12.5 mg PO DAILY 30 Days Qty: 30 4RF alendronate 70 mg tablet 70 mg PO QWEEK Eliquis 2.5 mg Tablet 2.5 mg PO BID 20 Days Qty: 40 0RF hydrocodone-acetaminophen 7.5-325 mg tablet 1 tab PO Q8H MDD 3 pills daily PRN (Reason: pain) Qty: 14 0RF pantoprazole [Protonix] 40 mg tablet,delayed release (DR/EC) 40 mg PO QDAY Qty: 7 0RF sennosides [senna] 8.6 mg tablet 8.6 mg PO BID PRN (Reason: constipation) Qty: 14 0RF Referrals: Brad Broussard MD [Primary Care Provider] - In 1 week Problem List Clinical Impression: Syncope Patient/Caregiver Discharge Instructions Education Materials: ED Fainting, Uncertain Cause Additional Instructions: Con bcuio reciente cirug?a le brandt recetado analg?sicos al momento del brenda. Disminuya la dosis de los analg?sicos; puede dividirlos por la mitad y tomarlos cada 6 horas cuando est? despierto, seg?n sea necesario para el dolor. Aries un seguimiento con bucio m?dico de atenci?n primaria en 2 a 3 d?as para volver a controlarlo. No dude en regresar al departamento de emergencias armando pronto sandi los s?ntomas empeoren o si nota alg?n problema nuevo o preocupante. Print Language: [place] Stand Alone Forms: Amber Award Info., Patient Portal Info Letter
--- NOTE | 2024-10-17 12:00 | EKG_ITS ---
[facility] Test Date: 2024-10-17 Pat Name: LANNY MOORE Department: Room: - Gender: Female Captain Assistant: : 1945 Requested By: Shaan Rhodes Order Number: [id number] Reading MD: Shaan Rhodes Measurements Intervals [place] Rate: 62 P: 53 NV: 194 QRS: 35 QRSD: 85 T: 48 QT: 401 QTc: 409 Interpretive Statements SINUS RHYTHM Compared to ECG 10/12/2024 23:39:36 No significant changes /store/S0/[id number]/[id number].pdf
[2024-10-17 12:09] VITALS: BP 129/59; PULSE 65; PULSE 68; RESP 18; TEMP 36.8; O2SAT 97; BMI 24.7
--- NOTE | 2024-10-17 12:09 | PC.NURSE ---
BIBA; PER REPORT, PT COMING FROM HOME WITH C/O TWO SYNCOPAL EPISODES. UPON AMBULATION FROM BED TO RESTROOM, PT PASSED OUT BUT WAS CAUGHT BY FAMILY. UNCONSCIOUS FOR ABOUT 1 MINUTE. AFTERWARDS, FAMILY TRIED TO GET PT ON BATHROOM AGAIN AND PT PASSED OUT FOR ABOUT 1 MINUTE ALSO. +LOC; DENIES ANY HEAD TRAUMA/PAIN. RECENT HIP SURGERY L ON 10/14/24. PMH OF HYPERTENSION. PT CONNECTED TO MONITORS AT THIS TIME.
[2024-10-17 12:53] LABS: Basophils % (Auto) 1 % (0-2.5); Eosinophils # (Auto) 0.2 Thou/mm3 (0.0-0.5); Eosinophils % (Auto) 3 % (0-10); Hematocrit 28.2 % (36.0-46.0); Hemoglobin 9.8 g/dL (12.0-16.0); Immature Granulocytes % (Auto) 1 % (0-0); Immature Granulocytes Auto 0.06 Thou/mm3 (0.00-0.00); Lymphocytes # (Auto) 1.3 Thou/mm3 (1.0-4.8); Lymphocytes % (Auto) 15 % (10-50); Mean Corpuscular HGB Conc 34.8 g/dl (31.0-37.0); Mean Corpuscular Hemoglobin 28.9 pg (25.0-35.0); Mean Corpuscular Volume 83 fL (80-100); Monocytes # (Auto) 0.8 Thou/mm3 (0.0-0.8); Monocytes % (Auto) 10 % (0-12); Neutrophils % (Auto) 71 % (37-80); Nucleated Red Blood Cell % 0 /100 WBC (0); Platelet Count 235 Thou/mm3 (140-440); RDW Standard Deviation 42.5 fL (36.4-46.3); Red Blood Count 3.39 Miln/mm3 (4.00-5.20); White Blood Count 8.4 Thou/mm3 (3.6-11.0)
[2024-10-17 13:16] LABS: Alanine Aminotransferase 20 U/L (10-49); Albumin, Serum 3.9 gm/dL (3.4-4.8); Albumin/Globulin Ratio 1.7 (1.2-2.2); Alkaline Phosphatase 66 U/L (46-116); Anion Gap 8 (7-16); Aspartate Amino Transferase 22 U/L (0-34); BUN/Creatinine Ratio 24 Ratio (12-20); Bilirubin,Total 1.1 mg/dL (0.3-1.2); Blood Urea Nitrogen 19 mg/dL (9-23); Calcium 8.5 mg/dL (8.3-10.6); Calcium (Corrected) 8.6 mg/dL (8.5-10.1); Carbon Dioxide 27.5 mMol/L (20.0-31.0); Chloride 107 mMol/L (98-107); Creatinine (Component) 0.8 mg/dL (0.6-1.3); Estimated Creatinine Clearance 49.1 mL/min (>60); Globulin 2.3 gm/dL (2.3-3.5); Glucose 94 mg/dL (74-106); Osmolality,Calculated 285 (275-295); Potassium 4.4 mMol/L (3.4-5.1); Sodium 142 mMol/L (136-145); Total Protein 6.2 gm/dL (5.7-8.2); Troponin I < 0.020 ng/mL (0.0-0.045); eGFR > 60 See Note
--- NOTE | 2024-10-17 14:03 | XR_ITS ---
Examination: CT brain head without contrast. 2-D sagittal coronal reconstructions Date and time of exam:October 17, 2024 1555 hours INDICATIONS: Syncopal episode today, patient is anticoagulated COMPARISON: April 09, 2022 CTDI: vol (mGy):43.8 DLP: (mGycm):847 Technique: Multiple CT axial sections of the brain have been obtained, 5 mm slice thickness. Contrast has not been administered. 2-D sagittal, coronal reconstructions have been obtained Low dose protocols were performed. One or more of the following dose reduction techniques were used; automated exposure control, adjustment of the mA and/or KV according to patient size, use of iterative reconstruction technique. Findings: No significant ventricular enlargement. Intra-axial or extra-axial hemorrhage density is not seen. No mass effect or midline shift Basal cisterns are not remarkable. Fourth ventricle is midline. Cranial vault intact. Impression: Negative for acute hemorrhage, mass effect or midline shift Advise clinical correlation follow-up accordingly
[2024-10-17 15:34] LABS: Troponin I < 0.020 ng/mL (0.0-0.045)
[2024-10-17] MEDS: HYDROcodone/APAP 5/325 TABLET 1 TAB PO (15:53)
--- NOTE | 2024-10-17 17:12 | PC.NURSE ---
Patient up and eating comfortably
== END 2024-10-17 17:32 | disposition home or self-care (01) ==
PROVIDERS: Emergency Provider Emergency Medicine; PCP Family Medicine
DX: R55 Syncope and collapse (principal); I10 Essential (primary) hypertension; E78.5 Hyperlipidemia, unspecified; M81.0 Age-related osteoporosis without current pathological fracture
CPT/HCPCS: 36415; 70450; 80053; 81001; 84484; 85025; 93005; 99284; A9270

== ENCOUNTER → 2024-11-25 | Outpatient (CLI) | payer MEDICAID, SELFPAY | END | disposition home or self-care (01) | LOC: CDIM 16:18 | PROVIDERS: Referring Provider Orthopaedic Surgery; Visit Provider Orthopaedic Surgery | DX: Z53.8 Procedure and treatment not carried out for other reasons (principal) ==

== ENCOUNTER → 2024-12-02 | Outpatient (CLI) | payer MEDICAID, SELFPAY ==
--- NOTE | 2024-12-02 15:37 | XR_ITS ---
Examination: Left femur 2 views Technique one AP lateral left femur 2 views Exam date and time: December 02, 2024 1555 hours Comparison October 14, 2024 INDICATIONS: Postop reduction internal fixation left hip fracture October 14, 2024 FINDINGS: Significant partial healing left hip fracture Satisfactory alignment Orthopedic hardware including intramedullary sagar satisfactory position IMPRESSION: Partial healing left hip fracture with satisfactory alignment
--- NOTE | 2024-12-02 15:38 | XR_ITS ---
Examination:Left hip AP, lateral, AP pelvis 3 views Technique: Hip AP lateral, AP pelvis, 3 views Exam date and time:December 02, 2024 1555 hours Comparison October 14, 2024 INDICATIONS: Status post operative reduction internal fixation left hip fracture October 14, 2024 FINDINGS: Significant healing fracture left hip with stable and satisfactory alignment Orthopedic hardware satisfactory position IMPRESSION: Significant healing fracture left hip with stable and satisfactory alignment.
== END | disposition home or self-care (01) ==
LOC: CDIM 15:15
PROVIDERS: PCP Family Medicine; Referring Provider Orthopaedic Surgery; Visit Provider Orthopaedic Surgery
DX: S72.092A Other fracture of head and neck of left femur, initial encounter for closed fracture (principal); X58.XXXA Exposure to other specified factors, initial encounter; Z98.890 Other specified postprocedural states
CPT/HCPCS: 73502; 73552

== ENCOUNTER → 2025-01-27 | Outpatient (CLI) | payer MEDICAID, SELFPAY ==
--- NOTE | 2025-01-27 14:27 | XR_ITS ---
Examination:Left hip AP, lateral, AP pelvis 3 views Technique: Hip AP lateral, AP pelvis, 3 views Exam date and time:January 27, 2025 1431 hours INDICATIONS: Status post operative reduction internal fixation left hip fracture October 14, 2024 FINDINGS: Healed left hip fracture with satisfactory alignment Intramedullary sagar satisfactory position IMPRESSION: Healed left hip fracture with satisfactory alignment.
== END | disposition home or self-care (01) ==
LOC: CDIM 14:05
PROVIDERS: PCP Family Medicine; Referring Provider Orthopaedic Surgery; Visit Provider Orthopaedic Surgery
DX: Z87.81 Personal history of (healed) traumatic fracture (principal); Z98.890 Other specified postprocedural states
CPT/HCPCS: 73502

== ENCOUNTER 2025-02-10 14:26 | Emergency (ER) | payer MEDICAID, SELFPAY ==
[2025-02-10 14:27] VITALS: BMI 23.4
[2025-02-10 14:39] VITALS: BP 109/68; PULSE 70; RESP 16; TEMP 36.8; O2SAT 96
--- NOTE | 2025-02-10 14:57 | EDNOTE_ITS ---
ED Abdominal Pain RME/HPI General Chief Complaint: Abdominal Pain Stated complaint: ABD PAIN, NAUSEA, VOMITING AND DIZZINESS Time seen by provider: 02/10/25 14:52 Arrival date/time: 02/10/25 14:26 RME / HPI RME / HPI narrative: 80-year-old female patient came in for evaluation regarding epigastric pain. Patient has been having epigastric pain for the last 3 days, severity mild, associated with vomiting today patient vomited 3 times nonbloody. Patient denies any dizziness denies any fever denies any diarrhea or constipation. Went to PCP and was referred here for further evaluation. Related Data Home Medications ?Medication ?Instructions ?Recorded ?Confirmed alendronate 70 mg tablet 70 mg PO QWEEK 10/13/2409/16 Previous Rx's ?Medication ?Instructions ?Recorded hydrochlorothiazide 12.5 mg tablet 12.5 mg PO DAILY 30 days #30 tabs 06/02/20 lisinopril 40 mg tablet 40 mg PO QDAY 30 days #30 ta bs 06/02/20 hydrocodone 7.5 mg-acetaminophen 1 tab PO Q8H PRN pain #14 tabs 10/16/24 325 mg tablet pantoprazole 40 mg tablet,delayed 40 mg PO QDAY #7 tab s 10/16/24 release (Protonix) sennosides 8.6 mg tablet (senna) 8.6 mg PO BID PRN con stipation #14 10/16/24 tabs cefuroxime axetil 500 mg tablet 500 mg PO BID #14 tabs 02/10/25 pantoprazole 40 mg tablet,delayed 40 mg PO QDAY #20 ta bs 02/10/25 release (Protonix) Allergies Allergy/AdvReac Type Severity Reaction Status Date / Time No Known Allergies Allergy Verified 04/12/22 13:32 Review of Systems Review of Systems Narrative Review of Systems: Review of system reviewed and within normal limits except mentioned in HPI ED Exam Narrative Physical exam: VITAL SIGNS: Reviewed. GENERAL APPEARANCE: Alert and interactive, follows commands, no acute distress, HEAD AND FACE: Non-traumatic. ENT: PERRL, pink conjunctivitis, eyelid no trauma, Mucous membrane moist. NECK: Supple, nontender, no nuchal rigidity. CHEST: No tenderness, no crepitus, no paradoxical movement, no retractions. LUNGS: Clear, well ventilated, symmetric, no rales, no wheezing, no ronchi, no stridor, good breath sounds bilaterally. HEART: Regular rate, regular rhythm, no murmur, no gallops. ABDOMEN: Soft, positive bowel sounds, nondistended, no guarding, epigastric tenderness, no rebound, no masses, RECTAL: Deferred. GENITAL: Deferred. NEUROLOGICAL: Gross motor function intact sensory function intact, Appropriate for age. MUSCULOSKELETAL: low back nontender, full range of motion. EXTREMITIES: Nontender, full range of motion. SKIN: Color pink, dry, no rash, no lacerations, no abrasions, no contusions. LYMPHATICS: Deferred. Course Quality Measures none Orders Category Date Time Status CT Screening NOW Care 02/10/25 15:00 Active EKG (ED ONLY) *Do not use* NOW Care 02/10/25 14:[address] abdomen pelvis w con Stat Exams 02/10/25 14:59 Completed EKG (ED Only) Stat Exams 02/10/25 14:58 Draft CBC Stat Lab 02/10/25 15:24 Completed Comprehensive Metabolic Panel Stat Lab 02/10/25 15:24 Completed Lipase Stat Lab 02/10/25 15:24 Completed Prothrombin Time with INR Stat Lab 02/10/25 15:24 Completed UA, C/S IF [Urinalysis, C/S if Indicated] Stat Lab 02/10/25 15:10 Completed Famotidine [Pepcid] Med 02/10/25 14:58 Discontinued 40 mg PO X1 ONE Ondansetron Odt [Zofran Odt] Med 02/10/25 14:58 Discontinued 4 mg PO X1 ONE cephALEXin [Keflex] Med 02/10/25 20:34 Once 500 mg PO X1 ONE Vital Signs Vital signs: Vital Signs Temperature 98.3 F 02/10/25 14:39 Pulse Rate 70 02/10/25 14:39 Respiratory Rate 16 02/10/25 14:39 Blood Pressure 109/68 02/10/25 14:39 Pulse Oximetry (%) 96 02/10/25 14:39 Oxygen Delivery Method Room Air 02/10/25 14:39 Abdominal Pain MDM MDM Narrative MDM Narrative:: 80-year-old female patient came in for evaluation regarding epigastric pain. Patient has been having epigastric pain for the last 3 days, severity mild, associated with vomiting today patient vomited 3 times nonbloody. Patient de nies any dizziness denies any fever denies any diarrhea or constipation. Went to PCP and was referred here for further evaluation. Laboratory workup is significant for UTI. CBC unremarkable. CT scan of the abdomen and pelvis showed Suspicious for right urinary tract infection and cystitis Patient received Pepcid Keflex and Zofran patient verbally significant for symptoms Patient appears nontoxic and hemodynamically stable .Decision to discharge the patient. The patient/family was given an opportunity to ask questions and understood their discharge instructions. Discharge instructions specifically included follow up provider and time frame, current and/or new medications and possible side effects, indications for sooner follow up or return to the emergency department, and the expected course of current diagnosis. Patient reports feeling better as well and giving evidence of significant clinical improvement, I believe patient is now a candidate for discharge. Patient data External records reviewed:: None Clinical information provided by:: patient and family Social determinants that could affect healthcare access:: none Patient has the following chronic illnesses:: Hypertension How is presenting disease/condition affected by chronic disease/condition?: uneffected by Evaluation data The following diagnostics were reviewed and interpreted by me:: lab results and radiology exam(s) Lab and/or radiology exams considered but not ordered:: None Interpretation Summary: See results MDM Medications / Prescriptions Medications or Prescriptions considered but not ordered:: None Medication administrations:: Medication Administration History Cephalexin HCl (Cephalexin 250 Mg Capsule) 500 mg PO X1 ONE Stop: 02/10/25 20:35 Discontinued Medications Famotidine (Famotidine 20 Mg Tablet) 40 mg PO X1 ONE Stop: 02/10/25 14:59 Last Admin: 02/10/25 15:08 Dose: 40 mg Documented By: PAXTON Ondansetron HCl (Ondansetron Odt 4 Mg Tabrap) 4 mg PO X1 ONE; Protocol Stop: 02/10/25 14:59 Last Admin: 02/10/25 15:08 Dose: 4 mg Documented By: PAXTON Nguyen Pepcid and Keflex Consultations Consultation(s) initiated? (list below): No Diagnosis Differential diagnosis abdominal pain: abdominal pain and other (UTI, gastritis) Most likely diagnosis given after review of the tests above:: UTI, gastritis Admission Indicated Admission indicated?: not indicated Admission Request Was there a request for admission?: No Disposition Plan Disposition Plan: Discharge Discharge Attestation Discharge Attestation: The patient and all family members were given an opportunity to ask questions and understood the discharge instructions. Discharge instructions specifically effects, indications for sooner follow up or return to the emergency department, and the expected course of current diagnosis. Patient condition: Stable Discharge Plan Plan Patient Disposition: HOME (Self Care) Discharge Disposition comment: Stable Prescriptions/Referrals Prescriptions/Med Rec: New cefuroxime axetil 500 mg tablet 500 mg PO BID Qty: 14 0RF pantoprazole [Protonix] 40 mg tablet,delayed release (DR/EC) 40 mg PO QDAY Qty: 20 0RF No Action lisinopril 40 mg Tablet 40 mg PO QDAY 30 Days Qty: 30 4RF hydrochlorothiazide 12.5 mg Tablet 12.5 mg PO DAILY 30 Days Qty: 30 4RF alendronate 70 mg tablet 70 mg PO QWEEK hydrocodone-acetaminophen 7.5-325 mg tablet 1 tab PO Q8H MDD 3 pills daily PRN (Reason: pain) Qty: 14 0RF pantoprazole [Protonix] 40 mg tablet,delayed release (DR/EC) 40 mg PO QDAY Qty: 7 0RF sennosides [senna] 8.6 mg tablet 8.6 mg PO BID PRN (Reason: constipation) Qty: 14 0RF Referrals: No Primary/Family,Physician [Primary Care Provider] - In 1 week Problem List Clinical Impression: Gastritis, UTI (urinary tract infection) Patient/Caregiver Discharge Instructions Discharge Activity: activity as tolerated Education Materials: Understanding Urinary Tract ..., ED Gastritis (Adult) Additional Instructions: Thank you for the opportunity for serving you today. You are stable for discharged . You are advised to: Follow-up with your PCP in 1 to 2 days Return to ED for worsening of symptoms Increase oral fluids Take medication as prescribed Print Language: Syrian Stand Alone Forms: Amber Award Info., Patient Portal Info Letter NICK/DEBRA Supervising Physician NICK/DEBRA Supervising Physician: MD Zara
--- NOTE | 2025-02-10 14:58 | EKG_ITS ---
[facility] Test Date: 2025-02-10 Pat Name: LANNY MOORE Department: Room: - Gender: Female Civil Engineering Assistant: : 1945 Requested By: Hermann Stafford Order Number: [id number] Reading MD: Hermann Stafford Measurements Intervals [place] Rate: 63 P: 36 [place]: 194 QRS: -1 QRSD: 99 T: 34 QT: 400 QTc: 411 Interpretive Statements SINUS RHYTHM LOW QRS VOLTAGE IN PRECORDIAL LEADS [QRS DEFLECTION < 1.0 mV IN CHEST LEADS] MODERATE VOLTAGE CRITERIA FOR LVH, CONSIDER NORMAL VARIANT [MEETS CRITERIA IN ONE OF: R(aVL), S(V1), R(V5), R(V5/V6)+S(V1)] Compared to ECG 10/17/2024 12:21:27 Low QRS voltage now present /store/S0/[id number].pdf
--- NOTE | 2025-02-10 14:59 | XR_ITS ---
Examination: CT abdomen with intravenous contrast CT pelvis with intravenous contrast 2-D coronal reconstructions 2-D sagittal reconstructions Date and time of exam:February 10, 2025 1853 hours Comparison February 10, 2025 INDICATIONS: Nausea vomiting diarrhea beginning today. CTDI: vol (mGy) 6.62 DLP: (mGycm) 333 Technique: Multiple axial sections of the abdomen and pelvis have been obtained. 64 slice high-resolution scanner used. 3 mm axial sections have been obtained, post intravenous injection 60 cc Isovue 370 2-D sagittal, coronal reconstructions obtained. Low dose protocols were performed. One or more of the following dose reduction techniques were used; automated exposure control, adjustment of the mA and/or KV according to patient size, use of iterative reconstruction technique. Findings: 4 mm right lobe liver cyst Absent gallbladder Common bile duct 6 mm no common bile duct stones No pancreatic or adrenal mass Spleen not enlarged Moderate right renal parenchymal scar formation Minimal dilatation left renal calyces no renal or ureteral calculi Heavy abdominal aortic calcification No pericecal inflammatory changes No diverticulitis No bladder mass lower bladder wall is mildly thickened Advanced disc narrowing L5-S1 IMPRESSION: Suspicious for right urinary tract infection and cystitis
[2025-02-10] MEDS: FAMOTIDINE 20 MG TABLET 40 MG PO (15:08)
[2025-02-10] MEDS: ONDANSETRON ODT 4 MG TABRAP PO (15:08)
[2025-02-10 15:23] LABS: Collection Type, Urine Clean Catch
[2025-02-10 15:30] LABS: Bilirubin,Urine Negative (Negative); Blood,Urine 1+ (Negative); Clarity,Urine Clear (Clear/Hazy); Color,Urine Yellow (Lt Yel-Yel); Culture Indicated,Urine Not Indicated; Glucose, Urine Negative (Negative); Hyaline Casts,Urine < 1 /hpf (0-1); Ketones,Urine Trace (Negative); Leukocyte Esterase,Urine Positive (Negative); Nitrite,Urine Negative (Negative); Protein,Urine Trace (Neg - Trace); RBC,Urine 6 /hpf (0-3); Specific Gravity,Urine 1.029 (1.001-1.035); Squamous Epithelial Cell,Urine 4 /hpf (0-5); Urobilinogen,Urine Negative mg/dL (0.0-1.0); WBC,Urine 6 /hpf (0-5)
[2025-02-10 15:44] LABS: Basophils % (Auto) 0 % (0-2.5); Eosinophils % (Auto) 0 % (0-10); Hematocrit 35.5 % (36.0-46.0); Hemoglobin 12.6 g/dL (12.0-16.0); Immature Granulocytes % (Auto) 0 % (0-0); Immature Granulocytes Auto 0.01 Thou/mm3 (0.00-0.00); Lymphocytes % (Auto) 31 % (10-50); Mean Corpuscular HGB Conc 35.5 g/dl (31.0-37.0); Mean Corpuscular Hemoglobin 28.1 pg (25.0-35.0); Mean Corpuscular Volume 79 fL (80-100); Monocytes # (Auto) 0.5 Thou/mm3 (0.0-0.8); Monocytes % (Auto) 8 % (0-12); Neutrophils # (Auto) 3.9 Thou/mm3 (1.8-7.7); Neutrophils % (Auto) 61 % (37-80); Nucleated Red Blood Cell % 0 /100 WBC (0); Platelet Count 266 Thou/mm3 (140-440); RDW Standard Deviation 40.7 fL (36.4-46.3); Red Blood Count 4.48 Miln/mm3 (4.00-5.20); White Blood Count 6.5 Thou/mm3 (3.6-11.0)
[2025-02-10 16:02] LABS: Prothrombin Time 10.9 Seconds (9.0-12.2)
[2025-02-10 16:03] LABS: Alanine Aminotransferase 16 U/L (10-49); Albumin/Globulin Ratio 1.9 (1.2-2.2); Alkaline Phosphatase 77 U/L (46-116); Anion Gap 10 (7-16); Aspartate Amino Transferase 28 U/L (0-34); BUN/Creatinine Ratio 20 Ratio (12-20); Bilirubin,Total 0.5 mg/dL (0.3-1.2); Blood Urea Nitrogen 18 mg/dL (9-23); Calcium 10.6 mg/dL (8.3-10.6); Calcium (Corrected) 10.6 mg/dL (8.5-10.1); Carbon Dioxide 27.8 mMol/L (20.0-31.0); Chloride 96 mMol/L (98-107); Creatinine (Component) 0.9 mg/dL (0.6-1.3); Estimated Creatinine Clearance 35.8 mL/min (>60); Globulin 2.6 gm/dL (2.3-3.5); Glucose 117 mg/dL (74-106); Lipase 28 U/L (12-53); Osmolality,Calculated 271 (275-295); Potassium 4.2 mMol/L (3.4-5.1); Sodium 134 mMol/L (136-145); Total Protein 7.6 gm/dL (5.7-8.2); eGFR > 60 See Note
--- NOTE | 2025-02-10 20:59 | PC.NURSE ---
NO ANSWER AT ER LOBBY OR OUTSIDE ER OR RP ROOM.
--- NOTE | 2025-02-10 22:19 | PC.NURSE ---
NO ANSWER AT ER LOBBY OR OUTSIDE ER.
== END 2025-02-10 22:30 | disposition home or self-care (01) ==
PROVIDERS: Nurse Practitioner Family; Emergency Provider Emergency Medicine
DX: K29.70 Gastritis, unspecified, without bleeding (principal); N39.0 Urinary tract infection, site not specified; R94.31 Abnormal electrocardiogram [ECG] [EKG]
CPT/HCPCS: 36415; 74177; 80053; 81001; 83690; 85025; 85610; 93005; 99285; A4649; Q0162; Q9967; A9270